=== PATIENT | male | born 1970 | race Caucasian/White ===

== ENCOUNTER 2019-07-24 20:54 | Inpatient (IN) ==
[2019-07-24] MEDS ORDERED: NS 1000 ML 1,000 ML IV ONE (21:26)
--- NOTE | 2019-07-24 21:34 | DR.GENAD ---
HPI - PCP Primary Care Physician: NFD - Complaint/Symptoms Chief Complaint Doctors Comments: EMS states they were called becausea patient took approximately 31 Adderall tablets over three day period will Lorcet. Patient states he took 18 pills today and 18 pills yesterday and states he was taking pills over three days trying to kill himself. states he is bipolar and has schizophrenia and is suppose to be on Zyprexa, Artane, Celexa, Xanax and has not had his zyprexa for three months. states he has tried to kill himself before with overdose. He denies chest pain, SOB, cold or cough or any recent trauma. EMS states he was setting in a chair rocking when they got to the h ouse and he becames uncontrollable and they gave him Haldol 5mg and Vistaril and had to restrain him all the way to the emergency room. Patient state he want to go home. States he smokes a lot and drinks a lot about 20 beers daily and smoke marijuania but denies cocaine use. He denies headache, dizziness or blurred vision. Chief Complaint:: PER EMS, PATIENT TOOK 31 ADDERALL AND UNKNOWN NUMBER OF LORCETS; PATIENT IS UNRESPONSIVE, UNABLE TO FOLLOW COMMANDS, AND COMBATIVE DURING TRIAGE; PATIENT IS DIAPHORETIC - Nurses notes reviewed Nurses Notes Review: Yes - Source History Provided: EMS - Mode of Arrival Mode of Arrival: EMS - Timing Onset of Chief Complaint: 07/24/19 Came on: Gradually - Duration Duration: Constant How lon Duration: Days - Severity Severity: Moderate - Modifying Factors Worsens:: nothing Improves:: nothing PMH - PMH Past Medical History: No Past Medical History Comment: UNKNOWN Past Surgical History: No Past Surgical History Comment: UNKNOWN - Family History History of Family Medical Conditions: No - infectious screening Have you traveled outside the country in the last 6 months?: No (UNKNOWN) ROS - Review of Systems Constitutional: No Symptoms Reported Eyes: No Symptoms Reported ENTM: No Symptoms Reported Respiratoy: No Symptoms Reported. negative: See HPI, Productive Cough, Non- Productive Cough, Moist Cough, Dry Cough, Hacking Cough, Barking Cough, Brassy Cough, Orthopnea, Short of Breath, Stridor, Wheezing, Hemoptysis, Other Cardiovascular: No Symptoms Reported Gastrointestinal/Abdominal: No Symptoms Reported Genitourinary: No Symptoms Reported Neurological: No Symptoms Reported, Depressed, Emotional Problems Musculoskeletal: No Symptoms Reported Integumentary: No Symptoms Reported Hematologic/Lymphatic: No Symptoms Reported Endocrine: No Symptoms Reported Psychiatric: No Symptoms Reported, Anxiety, Depression, Hallucinations, Suicidal PE - General Limitations: No Limitations General Appearance: Alert, In Distress (moderate) - Head Head Exam: Normal Inspection, Atraumatic, Normocephalic - Eyes Eye exam: Normal Appearance, PERRL, EOMI. negative: Scleral Icterus, Conjunctival Injection, Nystagmus, Miosis, Mydrasis, Periorbital Swelling, Periorbital Tenderness, Other - ENT ENT Exam: Normal Exam, Normal Oropharynx, Normal External Ear Exam, Mucous Membranes Moist, TM's Normal Bilaterally External Ear Exam: Normal External Inspection TM/Canal Exam: Bilateral Normal Nose Exam: Normal Nose Exam Mouth Exam: Normal Inspection Throat Exam: Normal Inspection. negative: Tonsillar Erythema, Tonsillomegaly, Tonsillar Exudate, R Peritonsillar Mass, L Peritonsillar Mass, Muffled Voice, Other - Neck Neck Exam: Normal Inspection, Full ROM, Trachea Midline - Chest Chest Inspection: Normal Inspection, Symmetric Chest Wall Rise. negative: Tenderness, Rash, Abscess, Other - Respiratory Respiratory Exam: Normal Lung Sounds Bilat Respiratory Exam: Bilateral Clear to Auscultation - Cardiovascular Cardiovascular Exam: Regular Rate, Normal Rhythm, Tachycardia, Normal Heart Sounds - Abdominal Exam Abdominal Exam: Normal Inspection, Normal Bowel Sounds, Soft. negative: Distention, Tenderness, Guarding, Rebound, Rigidity, Dimnished Bowel Sounds, Hyperactive Bowel Sounds, Hypoactive Bowel Sounds, Organomegaly, Trauma, Incision, Ascites, Mass, Bruit, Pulsatile Mass, Hernia, Other Abdominal Tenderness: negative: RUQ, RLQ, LUQ, LLQ, Epigastrium, Suprapubic, Diffuse, Mild, Moderate, Severe, Other - Extremities Extremities Exam: Normal Inspection, Full ROM, Normal Capillary Refill. negative: Tenderness, Edema, Joint Swelling, Calf Tenderness, Other - Back Back Exam: Normal Inspection, Full ROM. negative: Tenderness, (R) CVA Tenderness, (L) CVA Tenderness, Muscle Spasm, Paraspinal Tenderness, Vertebral Tenderness, Rashes, (R) Sciatic Notch Tenderness, (L) Sciatic Notch Tendern, (R) Straight Leg Raise, (L) Straight Leg Raise, Other - Neurologic Neurological Exam: Alert, Oriented X3, CN II-XII Intact, Reflexes Normal. negative: Normal Gait (gait not tested) - Psychiatric Psychiatric Exam: Normal Affect, Normal Mood, Agitated, Suicidal Ideation - Skin Skin Exam: Warm, Dry, Intact, Normal Color, Other (multiple tatooes) - Vital Signs Vitals: Pulse Rate 72 Respiratory Rate 17 Blood Pressure 140/82 O2 Sat by Pulse Oximetry 94 Course - Reevaluation 1st: Improved - Consultation Called: 01:46 Call Returned: 01:46 (Dr. Batista to admit) - Education/Counseling Education/Counseling: Patient, Family Educated On: Treatment, Diagnosis, Needs for Follow Up ROR - Labs Reviewed Laboratory Results Reviewed?: Yes (All labs and x-ray results reviewed and discussed with patenti) Result Diagrams: 07/24/19 21:40 07/25/19 00:34 - EKG Rate: 72 [place]: Normal Rhythm: NSR Block: None Hypertrophy: LVH ST: Nonsp - Labs Reviewed Laboratory: WBC 10.3 X10^3/uL (3.6-10.0) H 07/24/19 21:40 RBC 4.41 X10^6/uL (4.7-6.0) L 07/24/19 21:40 Hgb 13.8 g/dL (13.5-18.0) 07/24/19 21:40 Hct 40.5 % (42.0-54.0) L 07/24/19 21:40 MCV 91.8 fL (80.0-100.0) 07/24/19 21:40 MCH 31.4 pg (27.0-34.0) 07/24/19 21:40 MCHC 34.2 g/dL (33.0-35.0) 07/24/19 21:40 RDW 14.2 % (11.6-16.5) 07/24/19 21:40 Plt Count 206 X10^3/uL (150.0-450.0) 07/24/19 21:40 MPV 8.7 fL (7.4-11.0) 07/24/19 21:40 Neut % (Auto) 77.4 % (42.0-75.0) H 07/24/19 21:40 Lymph % (Auto) 12.1 % (21.0-51.0) L 07/24/19 21:40 [place] % (Auto) 8.2 % (0.0-13.0) 07/24/19 21:40 Eos % (Auto) 2.1 % (0.9-2.9) 07/24/19 21:40 Baso % (Auto) 0.2 % (0.2-1.0) 07/24/19 21:40 Neut # (Auto) 7.9 x10^3/uL (2.2-4.8) H 07/24/19 21:40 Lymph # (Auto) 1.2 X10^3/uL (1.3-2.9) L 07/24/19 21:40 [place] # (Auto) 0.8 x10^3/uL (0.3-0.8) 07/24/19 21:40 Eos # (Auto) 0.2 x10^3/uL (0.0-0.2) 07/24/19 21:40 Baso # (Auto) 0.0 X10^3/uL (0.0-0.1) 07/24/19 21:40 Absolute Nucleated RBC 0.0 /100WBC 07/24/19 21:40 Sodium 139 mmol/L (136-145) 07/25/19 00:34 Corrected Sodium 140 mmol/L (136-145) 07/25/19 00:34 Potassium 3.5 mmol/L (3.5-5.1) 07/25/19 00:34 Chloride 103 mmol/L (98-107) 07/25/19 00:34 Carbon Dioxide 30.2 mmol/L (21-32) 07/25/19 00:34 BUN 3 mg/dL (7-18) L 07/25/19 00:34 Creatinine 0.62 mg/dL (0.70-1.30) L 07/25/19 00:34 Est GFR (MDRD) Af Amer > 60 (>60) 07/25/19 00:34 Est GFR (MDRD) Non-Af > 60 (>60) 07/25/19 00:34 Glucose 155 mg/dL (65-99) H 07/25/19 00:34 Calcium 8.1 mg/dL (8.5-10.1) L 07/25/19 00:34 Corrected Calcium 9.1 mg/dL (8.5-10.1) 07/25/19 00:34 Magnesium 1.9 mg/dL (1.7-2.9) 07/24/19 21:40 Total Bilirubin 0.30 mg/dL (0.2-1.0) 07/25/19 00:34 AST 50 Units/L (15-37) H 07/25/19 00:34 ALT 49 Units/L (12-78) 07/25/19 00:34 Alkaline Phosphatase 63 Units/L (46-116) 07/25/19 00:34 Creatine Kinase 1060 Units/L (39-308) H 07/24/19 21:40 CK-MB (CK-2) 12.5 ng/mL (0-4.0) H* 07/24/19 21:40 CK/CKMB % Calc 1.2 % (<4) 07/24/19 21:40 Troponin I < 0.02 ng/mL (0-1.5) 07/24/19 21:40 Total Protein 6.0 g/dL (6.4-8.2) L 07/25/19 00:34 Albumin 2.8 g/dL (3.4-5.0) L 07/25/19 00:34 Globulin 3.2 g/dL (2.5-4.5) 07/25/19 00:34 Albumin/Globulin Ratio 0.9 Ratio (1.1-2.1) L 07/25/19 00:34 Specimen Type Catherized urine 07/24/19 21:38 Urine Color Yellow (YELLOW) 07/24/19 21:38 Urine Appearance Clear (CLEAR) 07/24/19 21:38 Urine pH 8.0 (5.0 - 8.0) 07/24/19 21:38 Ur Specific [place] 1.015 (1.000-1.030) 07/24/19 21:38 Urine Protein Negative (NEGATIVE) 07/24/19 21:38 Urine Glucose (UA) Negative (NEGATIVE) 07/24/19 21:38 Urine Ketones Negative (NEGATIVE) 07/24/19 21:38 Urine Occult Blood Negative (NEGATIVE) 07/24/19 21:38 Urine Nitrite Negative (NEGATIVE) 07/24/19 21:38 Urine Bilirubin Negative (NEGATIVE) 07/24/19 21:38 Urine Urobilinogen Normal (NORMAL) 07/24/19 21:38 Ur Leukocyte Esterase Negative (NEGATIVE) 07/24/19 21:38 Salicylates 6.4 mg/dL (2.8-20) 07/25/19 00:34 Urine Opiates Screen Negative (NEG=<300) 07/24/19 21:38 Urine Methadone Screen Negative (NEG=<300) 07/24/19 21:38 Acetaminophen 0.0 ug/mL (10-30) L 07/24/19 21:40 Ur Barbiturates Screen Negative (NEG=<200) 07/24/19 21:38 Ur Phencyclidine Scrn Negative (NEG=<25) 07/24/19 21:38 Ur Amphetamines Screen Positive (NEG=<1000) 07/24/19 21:38 U Benzodiazepines Scrn Negative (NEG=<200) 07/24/19 21:38 Urine Cocaine Screen Negative (NEG=<300) 07/24/19 21:38 U Marijuana (THC) Screen Positive (NEG=<50) A 07/24/19 21:38 Ethyl Alcohol mg/dL 114 mg/dL (0-19.9) H 07/24/19 21:40 Opioid - Opioid Risk Tool Total: 0 Total Score Risk Category: Low Risk - Diagnosis Discharge Problem: Adderall use disorder, severe, Hypokalemia Suicide attempt by drug ingestion Qualifiers: Encounter type: initial encounter Qualified Code(s): T50.902A - Poisoning by unspecified drugs, medicaments and biological substances, intentional self-harm, initial encounter Schizophrenia Qualifiers: Schizophrenia type: unspecified Qualified Code(s): F20.9 - Schizophrenia, unspecified Alcohol intoxication Qualifiers: Complication of substance-induced condition: uncomplicated Qualified Code(s): F10.920 - Alcohol use, unspecified with intoxication, uncomplicated Rhabdomyolysis Qualifiers: Encounter type: initial encounter - Discharge Plan Disposition: ADMITTED INPATIENT Condition: Stable - Follow ups/Referrals Follow ups/Referrals: NFD,None [Primary Care Provider] - 3 days - Instructions
[2019-07-24] MEDS ORDERED: NS 1000 ML 1,000 ML ONE (21:41)
[2019-07-24 21:44] LABS: BILIRUBIN,URINE NEGATIVE (NEGATIVE); BLOOD/HEMOGLOBIN,URINE NEGATIVE (NEGATIVE); GLUCOSE, URINE NEGATIVE (NEGATIVE); KETONES,URINE NEGATIVE (NEGATIVE); LEUKOCYTE ESTERASE ,URINE NEGATIVE (NEGATIVE); NITRITES,URINE NEGATIVE (NEGATIVE); PROTEIN,URINE NEGATIVE (NEGATIVE); UROBILINOGEN,URINE NORMAL (NORMAL)
[2019-07-24 21:51] LABS: BASOPHILS % (AUTO) 0.2 % (0.2-1.0); EOSINOPHILS # (AUTO) 0.2 x10^3/uL (0.0-0.2); EOSINOPHILS % (AUTO) 2.1 % (0.9-2.9); HEMATOCRIT 40.5 % (42.0-54.0); HEMOGLOBIN 13.8 g/dL (13.5-18.0); LYMPHOCYTES # (AUTO) 1.2 X10^3/uL (1.3-2.9); LYMPHOCYTES % (AUTO) 12.1 % (21.0-51.0); MEAN CORPUSCULAR HEMOGLOBIN 31.4 pg (27.0-34.0); MEAN CORPUSCULAR HGB CONC 34.2 g/dL (33.0-35.0); MEAN CORPUSCULAR VOLUME 91.8 fL (80.0-100.0); MEAN PLATELET VOLUME 8.7 fL (7.4-11.0); MONOCYTES # (AUTO) 0.8 x10^3/uL (0.3-0.8); MONOCYTES % (AUTO) 8.2 % (0.0-13.0); NEUTROPHILS # (AUTO) 7.9 x10^3/uL (2.2-4.8); NEUTROPHILS % (AUTO) 77.4 % (42.0-75.0); PLATELET COUNT 206 X10^3/uL (150.0-450.0); RED BLOOD COUNT 4.41 X10^6/uL (4.7-6.0); RED CELL DISTRIBUTION WIDTH 14.2 % (11.6-16.5); WHITE BLOOD COUNT 10.3 X10^3/uL (3.6-10.0)
[2019-07-24 21:53] LABS: BLOOD UREA NITROGEN 4 mg/dL (7-18); CALCIUM 8.5 mg/dL (8.5-10.1); CARBON DIOXIDE 27.3 mmol/L (21-32); CHLORIDE 99 mmol/L (98-107); CREATININE 0.71 mg/dL (0.70-1.30); SODIUM 138 mmol/L (136-145); eGFR NON BLACK RACES > 60 (>60)
[2019-07-24 21:55] LABS: APPEARANCE,URINE CLEAR (CLEAR); COLOR,URINE YELLOW (YELLOW)
[2019-07-24 21:57] LABS: ALANINE AMINOTRANSFERASE 54 Units/L (12-78); ALBUMIN 3.1 g/dL (3.4-5.0); ALKALINE PHOSPHATASE 69 Units/L (46-116); ASPARTATE AMINO TRANSFERASE 52 Units/L (15-37); BLOOD ALCOHOL 114 mg/dL (0-19.9); COR CA(FOR HYPOALB) 9.2 mg/dL (8.5-10.1); TOTAL PROTEIN 6.4 g/dL (6.4-8.2)
[2019-07-24 22:28] LABS: TROPONIN I < 0.02 ng/mL (0-1.5)
[2019-07-24 22:29] LABS: CKMB % 1.2 % (<4); CREATINE KINASE 1060 Units/L (39-308); CREATINE KINASE MB 12.5 ng/mL (0-4.0)
[2019-07-24 22:33] LABS: SALICYLATE 7.3 mg/dL (2.8-20)
[2019-07-24] MEDS ORDERED: K-LYTE EFFERVESCENT ONE (23:24)
[2019-07-24] MEDS ORDERED: D5 1/2 NS + KCL 20 MEQ/L 1,000 ML IV ONE (23:44)
[2019-07-24] MEDS ORDERED: MVI INJ (ADULT) IV ONE (23:45)
[2019-07-24] MEDS ORDERED: D5 1/2 NS + KCL 20 MEQ/L 1,000 ML IV SCH (23:45)
[2019-07-24] MEDS: K-LYTE EFFERVESCENT PO SCH (23:46)
[2019-07-25 00:57] LABS: ALANINE AMINOTRANSFERASE 49 Units/L (12-78); ALBUMIN 2.8 g/dL (3.4-5.0); ALKALINE PHOSPHATASE 63 Units/L (46-116); ASPARTATE AMINO TRANSFERASE 50 Units/L (15-37); BLOOD UREA NITROGEN 3 mg/dL (7-18); CALCIUM 8.1 mg/dL (8.5-10.1); CARBON DIOXIDE 30.2 mmol/L (21-32); CHLORIDE 103 mmol/L (98-107); COR CA(FOR HYPOALB) 9.1 mg/dL (8.5-10.1); COR NA(FOR HYPERGLY) 140 mmol/L (136-145); CREATININE 0.62 mg/dL (0.70-1.30); SODIUM 139 mmol/L (136-145); eGFR NON BLACK RACES > 60 (>60)
[2019-07-25 01:00] LABS: SALICYLATE 6.4 mg/dL (2.8-20)
[2019-07-25 03:25] LABS: BASOPHILS % (AUTO) 0.6 % (0.2-1.0); EOSINOPHILS # (AUTO) 0.3 x10^3/uL (0.0-0.2); EOSINOPHILS % (AUTO) 4.5 % (0.9-2.9); HEMATOCRIT 41.1 % (42.0-54.0); HEMOGLOBIN 14.1 g/dL (13.5-18.0); LYMPHOCYTES # (AUTO) 1.8 X10^3/uL (1.3-2.9); MEAN CORPUSCULAR HEMOGLOBIN 31.3 pg (27.0-34.0); MEAN CORPUSCULAR HGB CONC 34.3 g/dL (33.0-35.0); MEAN CORPUSCULAR VOLUME 91.3 fL (80.0-100.0); MEAN PLATELET VOLUME 8.6 fL (7.4-11.0); MONOCYTES # (AUTO) 0.6 x10^3/uL (0.3-0.8); NEUTROPHILS # (AUTO) 4.3 x10^3/uL (2.2-4.8); NEUTROPHILS % (AUTO) 60.9 % (42.0-75.0); PLATELET COUNT 196 X10^3/uL (150.0-450.0); RED CELL DISTRIBUTION WIDTH 14.5 % (11.6-16.5)
[2019-07-25 04:03] LABS: ALANINE AMINOTRANSFERASE 52 Units/L (12-78); ALBUMIN 2.8 g/dL (3.4-5.0); ALKALINE PHOSPHATASE 64 Units/L (46-116); ASPARTATE AMINO TRANSFERASE 49 Units/L (15-37); BLOOD UREA NITROGEN 3 mg/dL (7-18); CARBON DIOXIDE 28.3 mmol/L (21-32); CHLORIDE 104 mmol/L (98-107); COR NA(FOR HYPERGLY) 139 mmol/L (136-145); CREATININE 0.58 mg/dL (0.70-1.30); SODIUM 139 mmol/L (136-145); TROPONIN I < 0.02 ng/mL (0-1.5); eGFR NON BLACK RACES > 60 (>60)
[2019-07-25 04:06] LABS: CREATINE KINASE 1110 Units/L (39-308); CREATINE KINASE MB 11.2 ng/mL (0-4.0)
[2019-07-25 04:38] VITALS: BMI 21.6
[2019-07-25 10:21] LABS: CREATINE KINASE 837 Units/L (39-308); TROPONIN I < 0.02 ng/mL (0-1.5)
[2019-07-25 10:23] LABS: CREATINE KINASE MB 8.6 ng/mL (0-4.0)
--- NOTE | 2019-07-25 10:37 | DR.H&P ---
H&P History & Physical for Day of: H&P Date: 07/25/19 Chief Complaint Chief Complaint: Intentional overdose Allergies Allergies Allergy/AdvReac Type Severity Reaction Status Date / Time No Known Drug Allergies Allergy Verified 07/25/19 05:53 History of Present Illness History of Present Illness: Pt is a 49 yo m pmhx schizophrenia presenting with intentional overdose/suicide attempt. He was initially unresponsive and then became combative. He did require Haldol and vistaril. Per review of ED record, pt took 31 Adderall tablets over three day period with Loricet, in an attempt to kill himself. He does admit this to me and that he has been hearing voices in h is head that told him to do this. He appears to be having auditory hallucinations during exam along with withdrawal symptoms. He reports being on zyprexa in the past but has not taken for the past three months. Initial labs:Wbc 10.3, Ekg NSR, UDS +EtOH, +THC, +Amphetamines; K:2.7, Mag 1.9, CK 1060, Cr:0.62, Acetaminophen negative, Salicylates 7.3 wnl. Will continue to monitor and follow up labs in the morning. Past Medical History Past Medical History: Schizophrenia Past Surgical History Surgical History: Unknown Social History Does patient currently use any type of tobacco product: Yes Have you used tobacco products in the last 12 months: Yes Type of Tobacco Use: Cigarettes Does any household member use tobacco: Yes Alcohol Use: Heavy Drug Use: Prescription Drugs and Marijuana Medications Home Medications: No Known Drug Allergies Allergy (Verified 07/25/19 05:53) Labs Result Diagrams: 07/25/19 03:09 07/25/19 03:09 Labs: Laboratory WBC 7.0 X10^3/uL (3.6-10.0) 07/25/19 03:09 RBC 4.50 X10^6/uL (4.7-6.0) L 07/25/19 03:09 Hgb 14.1 g/dL (13.5-18.0) 07/25/19 03:09 Hct 41.1 % (42.0-54.0) L 07/25/19 03:09 MCV 91.3 fL (80.0-100.0) 07/25/19 03:09 MCH 31.3 pg (27.0-34.0) 07/25/19 03:09 MCHC 34.3 g/dL (33.0-35.0) 07/25/19 03:09 RDW 14.5 % (11.6-16.5) 07/25/19 03:09 Plt Count 196 X10^3/uL (150.0-450.0) 07/25/19 03:09 MPV 8.6 fL (7.4-11.0) 07/25/19 03:09 Neut % (Auto) 60.9 % (42.0-75.0) 07/25/19 03:09 Lymph % (Auto) 26.0 % (21.0-51.0) 07/25/19 03:09 [place] % (Auto) 8.0 % (0.0-13.0) 07/25/19 03:09 Eos % (Auto) 4.5 % (0.9-2.9) H 07/25/19 03:09 Baso % (Auto) 0.6 % (0.2-1.0) 07/25/19 03:09 Neut # (Auto) 4.3 x10^3/uL (2.2-4.8) 07/25/19 03:09 Lymph # (Auto) 1.8 X10^3/uL (1.3-2.9) 07/25/19 03:09 [place] # (Auto) 0.6 x10^3/uL (0.3-0.8) 07/25/19 03:09 Eos # (Auto) 0.3 x10^3/uL (0.0-0.2) H 07/25/19 03:09 Baso # (Auto) 0.0 X10^3/uL (0.0-0.1) 07/25/19 03:09 Absolute Nucleated RBC 0.0 /100WBC 07/25/19 03:09 Sodium 139 mmol/L (136-145) 07/25/19 03:09 Corrected Sodium 139 mmol/L (136-145) 07/25/19 03:09 Potassium 3.2 mmol/L (3.5-5.1) L 07/25/19 03:09 Chloride 104 mmol/L (98-107) 07/25/19 03:09 Carbon Dioxide 28.3 mmol/L (21-32) 07/25/19 03:09 BUN 3 mg/dL (7-18) L 07/25/19 03:09 Creatinine 0.58 mg/dL (0.70-1.30) L 07/25/19 03:09 Est GFR (MDRD) Af Amer > 60 (>60) 07/25/19 03:09 Est GFR (MDRD) Non-Af > 60 (>60) 07/25/19 03:09 Glucose 114 mg/dL (65-99) H 07/25/19 03:09 POC Glucose (mg/dL) 116 mg/dL (65-99) H 07/25/19 05:32 Calcium 8.0 mg/dL (8.5-10.1) L 07/25/19 03:09 Corrected Calcium 9.0 mg/dL (8.5-10.1) 07/25/19 03:09 Magnesium 1.9 mg/dL (1.7-2.9) 07/24/19 21:40 Total Bilirubin 0.30 mg/dL (0.2-1.0) 07/25/19 03:09 AST 49 Units/L (15-37) H 07/25/19 03:09 ALT 52 Units/L (12-78) 07/25/19 03:09 Alkaline Phosphatase 64 Units/L (46-116) 07/25/19 03:09 Creatine Kinase 837 Units/L (39-308) H 07/25/19 09:23 CK-MB (CK-2) 8.6 ng/mL (0-4.0) H* 07/25/19 09:23 CK/CKMB % Calc 1.0 % (<4) 07/25/19 09:23 Troponin I < 0.02 ng/mL (0-1.5) 07/25/19 09:23 Total Protein 6.0 g/dL (6.4-8.2) L 07/25/19 03:09 Albumin 2.8 g/dL (3.4-5.0) L 07/25/19 03:09 Globulin 3.2 g/dL (2.5-4.5) 07/25/19 03:09 Albumin/Globulin Ratio 0.9 Ratio (1.1-2.1) L 07/25/19 03:09 Specimen Type Catherized urine 07/24/19 21:38 Urine Color Yellow (YELLOW) 07/24/19 21:38 Urine Appearance Clear (CLEAR) 07/24/19 21:38 Urine pH 8.0 (5.0 - 8.0) 07/24/19 21:38 Ur Specific [place] 1.015 (1.000-1.030) 07/24/19 21:38 Urine Protein Negative (NEGATIVE) 07/24/19 21:38 Urine Glucose (UA) Negative (NEGATIVE) 07/24/19 21:38 Urine Ketones Negative (NEGATIVE) 07/24/19 21:38 Urine Occult Blood Negative (NEGATIVE) 07/24/19 21:38 Urine Nitrite Negative (NEGATIVE) 07/24/19 21:38 Urine Bilirubin Negative (NEGATIVE) 07/24/19 21:38 Urine Urobilinogen Normal (NORMAL) 07/24/19 21:38 Ur Leukocyte Esterase Negative (NEGATIVE) 07/24/19 21:38 Salicylates 6.4 mg/dL (2.8-20) 07/25/19 00:34 Urine Opiates Screen Negative (NEG=<300) 07/24/19 21:38 Urine Methadone Screen Negative (NEG=<300) 07/24/19 21:38 Acetaminophen 0.0 ug/mL (10-30) L 07/24/19 21:40 Ur Barbiturates Screen Negative (NEG=<200) 07/24/19 21:38 Ur Phencyclidine Scrn Negative (NEG=<25) 07/24/19 21:38 Ur Amphetamines Screen Positive (NEG=<1000) 07/24/19 21:38 U Benzodiazepines Scrn Negative (NEG=<200) 07/24/19 21:38 Urine Cocaine Screen Negative (NEG=<300) 07/24/19 21:38 U Marijuana (THC) Screen Positive (NEG=<50) A 07/24/19 21:38 Ethyl Alcohol mg/dL 114 mg/dL (0-19.9) H 07/24/19 21:40 Review of Systems Constitutional: Chills and Sweats; denies Fever Eyes: No Symptoms Reported ENT: No Symptoms Reported Respiratory: No Symptoms Reported Cardiovascular: No Symptoms Reported Gastrointestinal: No Symptoms Reported Genitourinary: No Symptoms Reported Musculoskeletal: Back Pain Skin: No Symptoms Reported Neurological: No Symptoms Reported Physical Exam Vital Signs: Temperature 97.7 F Pulse Rate [Left Brachial] 85 Pulse Rate 79 Respiratory Rate 18 Blood Pressure [Left Arm] 136/75 Blood Pressure 135/75 O2 Sat by Pulse Oximetry 94 Oriented: Person and Place Eyes: Other (Left pupil mydriasis ) Ear: Normal Nose: Normal Throat: Normal Respiratory: Clear Throughout Cardiovascular: Normal : Normal Auscultation: Bowel Sounds: Normal Palpation: Normal Tenderness: Normal Skin: Diaphoresis Musculoskeletal: Normal Psychiatric: Anxiety, Agitation and Other (auditory hallucinations) Mood Description: Suspicious and Anxious Affect: Anxious and Depressed Speech Pattern: Clear Assessment/Plan (1) Suicide attempt by drug ingestion: Qualifiers: Encounter type: initial encounter Qualified Code(s): T50.902A - Poisoning by unspecified drugs, medicaments and biological substances, intentional self-harm, initial encounter Status: Acute Plan: Suicide precautions Will contact psychiatric facility when patient is medically stable (2) Hypokalemia: Status: Acute Plan: Replete per protocol (3) Schizophrenia: Qualifiers: Schizophrenia type: unspecified Qualified Code(s): F20.9 - Schizophrenia, unspecified Status: Acute Plan: Will start Zyprexa. (4) Alcohol intoxication: Qualifiers: Complication of substance-induced condition: uncomplicated Qualified Code(s): F10.920 - Alcohol use, unspecified with intoxication, uncomplicated Status: Acute Plan: Start Thiamine, Ativan scheduled. (5) Rhabdomyolysis: Qualifiers: Encounter type: initial encounter Status: Acute Plan: Increase IVF NS@150ml/h CK:1060>1110 (6) Adderall use disorder, severe: Status: Acute (7) Fixed dilated pupil of left eye: Status: Acute Plan: Will get CT head to evaluate. Review H&P Reviewed: Yes Patient was examined?: Yes
[2019-07-25] MEDS ORDERED: ATIVAN TAB 1 MG PO ONE (10:41)
[2019-07-25] MEDS: NS 1000 ML 1,000 ML IV SCH ×2 (10:46→20:04)
[2019-07-25] MEDS: K-LYTE EFFERVESCENT PO SCH (10:47)
[2019-07-25] MEDS ORDERED: VITAMIN B-1 PO SCH (11:00)
[2019-07-25] MEDS ORDERED: ZyPREXA TAB 5 MG PO SCH (11:00)
--- NOTE | 2019-07-25 13:40 | CT ---
HISTORYDILATED PUPIL, DRUG INGESTIONSTUDYBRAIN W/O CONCOMPARISONNoneTECHNIQUESerial axial images were obtained from the skull base to the vertex without infusion of IV contrast. Coronal and sagittal images were also submitted. Dose reduction techniques including Automated Exposure Control (AEC) and adjustment of mA and kV were utilized.FINDINGSNo definite evidence of acute intracranial hemorrhage or mass is identified. The ventricles, sulci, and cisterns are grossly unremarkable in appearance. Patchy areas of decreased attenuation within the periventricular, subcortical, and subinsular white matter suggest changes of chronic small vessel ischemic disease. No evidence of significant midline shift is identified. No definite abnormal extra axial fluid collections are appreciated. The visualized paranasal sinuses are grossly unremarkable. If symptoms or clinical concerns persist recommend continued follow up for further evaluation.IMPRESSIONNo CT evidence of acute intracranial abnormality is appreciated.Findings suggesting changes of chronic small vessel ischemic disease.Electronically signed by: WILLIAM MUIR (Jul 25, 2019 13:39:46)
[2019-07-25] MEDS ORDERED: ZOFRAN INJ 4 MG VIAL ONE (15:31)
[2019-07-25] MEDS: ZOFRAN INJ 4 MG VIAL IVP PRN (15:35)
[2019-07-25 16:10] LABS: CREATINE KINASE 507 Units/L (39-308); TROPONIN I < 0.02 ng/mL (0-1.5)
[2019-07-25 16:12] LABS: CREATINE KINASE MB 5.1 ng/mL (0-4.0)
[2019-07-25] MEDS ORDERED: MAALOX or MYLANTA ONE (20:23)
[2019-07-25] MEDS ORDERED: K-DUR TAB 20 MEQ PO ONE (20:33)
[2019-07-25] MEDS: K-DUR TAB 20 MEQ PO PRN ×2 (20:36→20:37)
[2019-07-25] MEDS: ATIVAN TAB 1 MG PO PRN (20:51)
[2019-07-25] MEDS ORDERED: ATIVAN TAB 0.5 MG PO SCH (21:00)
[2019-07-26] MEDS ORDERED: TYLENOL 325 MG TAB PO PRN (02:20)
[2019-07-26] MEDS ORDERED: TYLENOL 325 MG TAB PO ONE (02:22)
[2019-07-26] MEDS: ATIVAN TAB 1 MG PO PRN ×4 (02:34→19:02)
[2019-07-26] MEDS: NS 1000 ML 1,000 ML IV SCH ×3 (02:43→19:03)
[2019-07-26 05:52] LABS: ALANINE AMINOTRANSFERASE 45 Units/L (12-78); ALBUMIN 2.6 g/dL (3.4-5.0); ALKALINE PHOSPHATASE 67 Units/L (46-116); ASPARTATE AMINO TRANSFERASE 34 Units/L (15-37); BLOOD UREA NITROGEN 5 mg/dL (7-18); CALCIUM 8.3 mg/dL (8.5-10.1); CARBON DIOXIDE 25.9 mmol/L (21-32); CHLORIDE 106 mmol/L (98-107); COR CA(FOR HYPOALB) 9.4 mg/dL (8.5-10.1); CREATINE KINASE 383 Units/L (39-308); CREATININE 0.63 mg/dL (0.70-1.30); MAGNESIUM 2.1 mg/dL (1.7-2.9); PHOSPHORUS 2.1 mg/dL (2.6-4.7); SODIUM 140 mmol/L (136-145); TOTAL PROTEIN 5.8 g/dL (6.4-8.2); eGFR NON BLACK RACES > 60 (>60)
[2019-07-26 05:53] LABS: BASOPHILS # (AUTO) 0.1 X10^3/uL (0.0-0.1); BASOPHILS % (AUTO) 0.9 % (0.2-1.0); EOSINOPHILS # (AUTO) 0.3 x10^3/uL (0.0-0.2); EOSINOPHILS % (AUTO) 4.6 % (0.9-2.9); HEMATOCRIT 40.8 % (42.0-54.0); HEMOGLOBIN 13.9 g/dL (13.5-18.0); LYMPHOCYTES # (AUTO) 1.6 X10^3/uL (1.3-2.9); LYMPHOCYTES % (AUTO) 21.6 % (21.0-51.0); MEAN CORPUSCULAR HEMOGLOBIN 31.5 pg (27.0-34.0); MEAN CORPUSCULAR HGB CONC 33.9 g/dL (33.0-35.0); MEAN CORPUSCULAR VOLUME 92.8 fL (80.0-100.0); MEAN PLATELET VOLUME 9.1 fL (7.4-11.0); MONOCYTES # (AUTO) 0.5 x10^3/uL (0.3-0.8); MONOCYTES % (AUTO) 7.1 % (0.0-13.0); NEUTROPHILS # (AUTO) 4.8 x10^3/uL (2.2-4.8); NEUTROPHILS % (AUTO) 65.8 % (42.0-75.0); PLATELET COUNT 204 X10^3/uL (150.0-450.0); RED CELL DISTRIBUTION WIDTH 14.6 % (11.6-16.5); WHITE BLOOD COUNT 7.3 X10^3/uL (3.6-10.0)
[2019-07-26] MEDS: ZOFRAN INJ 4 MG VIAL IVP PRN (07:46)
[2019-07-26] MEDS ORDERED: PHENOBARBITAL SODIUM INJ 65 MG VIAL IM PRN (08:26)
[2019-07-26] MEDS ORDERED: LIBRIUM PO PRN (08:26)
[2019-07-26] MEDS ORDERED: KAOPECTATE (NEW FORMULA) PO PRN (08:26)
[2019-07-26] MEDS ORDERED: MAALOX or MYLANTA PO PRN (08:26)
[2019-07-26] MEDS ORDERED: MILK OF MAGNESIA PO PRN (08:26)
[2019-07-26] MEDS ORDERED: MOTRIN TAB 800 MG PO PRN (08:26)
[2019-07-26] MEDS ORDERED: THIAMINE HCL INJ IM SCH (09:00)
[2019-07-26] MEDS ORDERED: ZyPREXA TAB 5 MG PO SCH (09:00)
--- NOTE | 2019-07-26 10:11 | PCM.PROG ---
Progress Note Progress Note for Day of Date of Exam: 07/26/19 Subjective Subjective: Pt is a 49 yo m pmhx schizophrenia admitted for intentional overdose/suicide attempt after taking over 30 pills of Adderall. He does also have acute psychosis, auditory hallucinations, alcohol withdrawal, and now almost resolved rhabdomyolysis. His CK has trended down from 1110>383. This mor alesia he is having some withdrawal symptoms of tremor. Detox protocol ordered. Still having auditory hallucination, will increase zyprexa to 10mg. He appeared to have a dilated pupil yesterday, CT head negative for acute findings. He will need to be evaluated at a psychiatric facility due to suicide attempt. Will continue to monitor and follow up labs in the morning. Past Medical Family Social History Past Med/Fam/Surg Hx: No changes since H&P Allergies: Allergies No Known Drug Allergies Allergy (Verified 07/25/19 05:53) Review of Systems ROS: No change since H&P Vital Signs and I&O's Vital Signs: Temperature 98.3 F Pulse Rate [Left Brachial] 85 Pulse Rate 93 Respiratory Rate 23 Blood Pressure [Left Arm] 136/75 Blood Pressure 145/99 O2 Sat by Pulse Oximetry 95 Intake and Output: Intake & Output 07/23/19 07/24/19 07/25/19 07/26/19 22:59 22:59 23:59 23:59 Intake Total 1620 / 1620 Output Total 1100 / 1100 Balance 520 / 520 Physical Exam Oriented: Person and Place Eyes: Other (Left pupil mydriasis ) Ear: Normal Nose: Normal Throat: Normal Respiratory: Normal Cardiovascular: Normal : Normal Auscultation: Bowel Sounds: Normal Tenderness: Normal Skin: Diaphoresis Musculoskeletal: Normal Psychiatric: Anxiety, Agitation and Other (auditory hallucinations) Mood Description: Suspicious and Anxious Affect: Anxious and Depressed Speech Pattern: Clear Laboratory and Diagnostics Result Diagrams: 07/26/19 04:31 07/26/19 04:31 Labs: Laboratory WBC 7.3 X10^3/uL (3.6-10.0) 07/26/19 04:31 RBC 4.40 X10^6/uL (4.7-6.0) L 07/26/19 04:31 Hgb 13.9 g/dL (13.5-18.0) 07/26/19 04:31 Hct 40.8 % (42.0-54.0) L 07/26/19 04:31 MCV 92.8 fL (80.0-100.0) 07/26/19 04:31 MCH 31.5 pg (27.0-34.0) 07/26/19 04:31 MCHC 33.9 g/dL (33.0-35.0) 07/26/19 04:31 RDW 14.6 % (11.6-16.5) 07/26/19 04:31 Plt Count 204 X10^3/uL (150.0-450.0) 07/26/19 04:31 MPV 9.1 fL (7.4-11.0) 07/26/19 04:31 Neut % (Auto) 65.8 % (42.0-75.0) 07/26/19 04:31 Lymph % (Auto) 21.6 % (21.0-51.0) 07/26/19 04:31 [place] % (Auto) 7.1 % (0.0-13.0) 07/26/19 04:31 Eos % (Auto) 4.6 % (0.9-2.9) H 07/26/19 04:31 Baso % (Auto) 0.9 % (0.2-1.0) 07/26/19 04:31 Neut # (Auto) 4.8 x10^3/uL (2.2-4.8) 07/26/19 04:31 Lymph # (Auto) 1.6 X10^3/uL (1.3-2.9) 07/26/19 04:31 [place] # (Auto) 0.5 x10^3/uL (0.3-0.8) 07/26/19 04:31 Eos # (Auto) 0.3 x10^3/uL (0.0-0.2) H 07/26/19 04:31 Baso # (Auto) 0.1 X10^3/uL (0.0-0.1) 07/26/19 04:31 Absolute Nucleated RBC 0.1 /100WBC 07/26/19 04:31 Sodium 140 mmol/L (136-145) 07/26/19 04:31 Corrected Sodium TNP 07/26/19 04:31 Potassium 4.1 mmol/L (3.5-5.1) 07/26/19 04:31 Chloride 106 mmol/L (98-107) 07/26/19 04:31 Carbon Dioxide 25.9 mmol/L (21-32) 07/26/19 04:31 BUN 5 mg/dL (7-18) L 07/26/19 04:31 Creatinine 0.63 mg/dL (0.70-1.30) L 07/26/19 04:31 Est GFR (MDRD) Af Amer > 60 (>60) 07/26/19 04:31 Est GFR (MDRD) Non-Af > 60 (>60) 07/26/19 04:31 Glucose 87 mg/dL (65-99) 07/26/19 04:31 POC Glucose (mg/dL) 93 mg/dL (65-99) 07/26/19 05:43 Calcium 8.3 mg/dL (8.5-10.1) L 07/26/19 04:31 Corrected Calcium 9.4 mg/dL (8.5-10.1) 07/26/19 04:31 Phosphorus 2.1 mg/dL (2.6-4.7) L 07/26/19 04:31 Magnesium 2.1 mg/dL (1.7-2.9) 07/26/19 04:31 Total Bilirubin 0.40 mg/dL (0.2-1.0) 07/26/19 04:31 AST 34 Units/L (15-37) 07/26/19 04:31 ALT 45 Units/L (12-78) 07/26/19 04:31 Alkaline Phosphatase 67 Units/L (46-116) 07/26/19 04:31 Creatine Kinase 383 Units/L (39-308) H 07/26/19 04:31 CK-MB (CK-2) 5.1 ng/mL (0-4.0) H* 07/25/19 15:09 CK/CKMB % Calc 1.0 % (<4) 07/25/19 15:09 Troponin I < 0.02 ng/mL (0-1.5) 07/25/19 15:09 Total Protein 5.8 g/dL (6.4-8.2) L 07/26/19 04:31 Albumin 2.6 g/dL (3.4-5.0) L 07/26/19 04:31 Globulin 3.2 g/dL (2.5-4.5) 07/26/19 04:31 Albumin/Globulin Ratio 0.8 Ratio (1.1-2.1) L 07/26/19 04:31 Specimen Type Catherized urine 07/24/19 21:38 Urine Color Yellow (YELLOW) 07/24/19 21:38 Urine Appearance Clear (CLEAR) 07/24/19 21:38 Urine pH 8.0 (5.0 - 8.0) 07/24/19 21:38 Ur Specific [place] 1.015 (1.000-1.030) 07/24/19 21:38 Urine Protein Negative (NEGATIVE) 07/24/19 21:38 Urine Glucose (UA) Negative (NEGATIVE) 07/24/19 21:38 Urine Ketones Negative (NEGATIVE) 07/24/19 21:38 Urine Occult Blood Negative (NEGATIVE) 07/24/19 21:38 Urine Nitrite Negative (NEGATIVE) 07/24/19 21:38 Urine Bilirubin Negative (NEGATIVE) 07/24/19 21:38 Urine Urobilinogen Normal (NORMAL) 07/24/19 21:38 Ur Leukocyte Esterase Negative (NEGATIVE) 07/24/19 21:38 Salicylates 6.4 mg/dL (2.8-20) 07/25/19 00:34 Urine Opiates Screen Negative (NEG=<300) 07/24/19 21:38 Urine Methadone Screen Negative (NEG=<300) 07/24/19 21:38 Acetaminophen 0.0 ug/mL (10-30) L 07/24/19 21:40 Ur Barbiturates Screen Negative (NEG=<200) 07/24/19 21:38 Ur Phencyclidine Scrn Negative (NEG=<25) 07/24/19 21:38 Ur Amphetamines Screen Positive (NEG=<1000) 07/24/19 21:38 U Benzodiazepines Scrn Negative (NEG=<200) 07/24/19 21:38 Urine Cocaine Screen Negative (NEG=<300) 07/24/19 21:38 U Marijuana (THC) Screen Positive (NEG=<50) A 07/24/19 21:38 Ethyl Alcohol mg/dL 114 mg/dL (0-19.9) H 07/24/19 21:40 Plan (1) Suicide attempt by drug ingestion: Status: Acute Qualifiers: Encounter type: initial encounter Qualified Code(s): T50.902A - Poisoning by unspecified drugs, medicaments and biological substances, intentional self-harm, initial encounter Plan: Suicide precautions Contact psychiatric facility for patient eval (2) Hypokalemia: Status: Acute Plan: Replete per protocol (3) Schizophrenia: Status: Acute Qualifiers: Schizophrenia type: unspecified Qualified Code(s): F20.9 - Schizophrenia, unspecified Plan: Increase Zyprexa dose to 10mg. (4) Alcohol intoxication: Status: Acute Qualifiers: Complication of substance-induced condition: uncomplicated Qualified Code(s): F10.920 - Alcohol use, unspecified with intoxication, uncomplicated Plan: Detox protocol (5) Rhabdomyolysis: Status: Acute Qualifiers: Encounter type: initial encounter Plan: Increase IVF NS@150ml/h CK:1060>1110>837>507>383 (6) Adderall use disorder, severe: Status: Acute (7) Fixed dilated pupil of left eye: Status: Acute Plan: CT head negative
[2019-07-26] MEDS: K-LYTE EFFERVESCENT PO SCH (10:31)
[2019-07-26] MEDS: PHENOBARBITAL TAB 30 MG (32.4MG) PO SCH ×3 (10:33→16:57)
[2019-07-26] MEDS: MAGNESIUM SULFATE 1 GRAM/100 mL PREMIX 1 G/100 ML BAG IV SCH ×2 (12:19→13:03)
[2019-07-26] MEDS ORDERED: NICOTINE PATCH TD ONE (15:28)
[2019-07-26] MEDS ORDERED: NICOTINE PATCH TD SCH (16:00)
[2019-07-26 19:26] VITALS: BP 126/71
--- NOTE | 2019-07-26 20:46 | W.DIS.FURT ---
Summary of Discharge Discharge Summary of Date Date of Exam: 07/26/19 Admission Date Date of Admission: 07/24/19 Admission Diagnosis Hospital Course: Pt is a 49 yo m pmhx schizophrenia admitted for intentional overdose/suicide attempt and acute psychosis after taking over 30 pills of Adderall. Pt reported having auditory hallucinations that were telling him to "kill himself". Pt also had moderate rhabdomyolysis that resolved with IVF and also had to be placed on detox protocol for alcohol withdrawal. He was also started on zyprexa. On day of discharge pt was medically stable for transfer to [facility] for further evaluation. Vital Signs: Vital Signs (72 hours) 07/24/19 20:57 07/24/19 21:30 07/24/19 22:00 Temperature Pulse Rate 79 99 H 71 Pulse Rate [Left Brachial] Respiratory Rate 22 20 16 Blood Pressure 117/61 105/52 128/65 Blood Pressure [Left Arm] O2 Sat by Pulse Oximetry 98 93 L 93 L 07/24/19 23:00 07/25/19 00:00 07/25/19 03:32 Temperature Pulse Rate 14 L 72 Pulse Rate [Left Brachial] 85 Respiratory Rate 14 17 20 Blood Pressure 122/68 140/82 Blood Pressure [Left Arm] 136/75 O2 Sat by Pulse Oximetry 93 L 94 L 98 07/25/19 03:45 07/25/19 04:00 07/25/19 04:05 Temperature 97.8 F Pulse Rate 74 78 79 Pulse Rate [Left Brachial] Respiratory Rate 21 24 29 H Blood Pressure 133/93 135/82 Blood Pressure [Left Arm] O2 Sat by Pulse Oximetry 98 99 99 07/25/19 05:00 07/25/19 06:00 07/25/19 07:00 Temperature Pulse Rate 75 78 82 Pulse Rate [Left Brachial] Respiratory Rate 16 22 22 Blood Pressure 132/79 135/77 133/74 Blood Pressure [Left Arm] O2 Sat by Pulse Oximetry 93 L 94 L 94 L 07/25/19 08:00 07/25/19 08:01 07/25/19 09:00 Temperature 97.7 F Pulse Rate 92 H 83 85 Pulse Rate [Left Brachial] Respiratory Rate 41 H 20 21 Blood Pressure 142/80 138/71 Blood Pressure [Left Arm] O2 Sat by Pulse Oximetry 96 97 95 07/25/19 10:00 07/25/19 11:00 07/25/19 12:00 Temperature 98.0 F Pulse Rate 79 86 76 Pulse Rate [Left Brachial] Respiratory Rate 18 23 17 Blood Pressure 135/75 135/65 136/80 Blood Pressure [Left Arm] O2 Sat by Pulse Oximetry 94 L 97 96 07/25/19 13:00 07/25/19 14:00 07/25/19 15:00 Temperature Pulse Rate 77 70 Pulse Rate [Left Brachial] Respiratory Rate 13 15 Blood Pressure 132/75 122/76 125/77 Blood Pressure [Left Arm] O2 Sat by Pulse Oximetry 96 97 07/25/19 16:00 07/25/19 17:00 07/25/19 17:01 Temperature 98.1 F Pulse Rate 70 87 67 Pulse Rate [Left Brachial] Respiratory Rate 16 62 H 21 Blood Pressure 126/79 137/93 Blood Pressure [Left Arm] O2 Sat by Pulse Oximetry 94 L 97 97 07/25/19 18:00 07/25/19 18:26 07/25/19 19:00 Temperature 98.8 F Pulse Rate 76 96 H 80 Pulse Rate [Left Brachial] Respiratory Rate 41 H 21 19 Blood Pressure 128/71 116/67 Blood Pressure [Left Arm] O2 Sat by Pulse Oximetry 95 98 96 07/25/19 20:00 07/25/19 21:00 07/25/19 22:00 Temperature Pulse Rate 78 86 81 Pulse Rate [Left Brachial] Respiratory Rate 26 H 30 H 17 Blood Pressure 120/72 153/84 143/81 Blood Pressure [Left Arm] O2 Sat by Pulse Oximetry 95 95 95 07/25/19 23:00 07/26/19 00:00 07/26/19 01:00 Temperature 98.8 F Pulse Rate 80 78 72 Pulse Rate [Left Brachial] Respiratory Rate 16 21 22 Blood Pressure 137/83 128/80 134/87 Blood Pressure [Left Arm] O2 Sat by Pulse Oximetry 95 95 97 07/26/19 02:00 07/26/19 02:24 07/26/19 03:00 Temperature Pulse Rate 71 75 Pulse Rate [Left Brachial] Respiratory Rate 25 H 15 21 Blood Pressure 135/76 146/91 Blood Pressure [Left Arm] O2 Sat by Pulse Oximetry 96 95 07/26/19 03:24 07/26/19 04:00 07/26/19 05:00 Temperature 98.8 F Pulse Rate 78 82 Pulse Rate [Left Brachial] Respiratory Rate 19 22 25 H Blood Pressure 143/98 156/91 Blood Pressure [Left Arm] O2 Sat by Pulse Oximetry 95 97 07/26/19 06:00 07/26/19 07:00 07/26/19 08:00 Temperature 98.3 F Pulse Rate 73 92 H 93 H Pulse Rate [Left Brachial] Respiratory Rate 23 32 H 23 Blood Pressure 144/89 138/95 145/99 Blood Pressure [Left Arm] O2 Sat by Pulse Oximetry 95 94 L 95 07/26/19 09:00 07/26/19 10:00 07/26/19 11:00 Temperature Pulse Rate 86 94 H 95 H Pulse Rate [Left Brachial] Respiratory Rate 26 H 28 H 25 H Blood Pressure 128/95 122/88 139/71 Blood Pressure [Left Arm] O2 Sat by Pulse Oximetry 97 97 97 07/26/19 12:00 07/26/19 13:00 07/26/19 14:00 Temperature 98.5 F Pulse Rate 98 H 89 88 Pulse Rate [Left Brachial] Respiratory Rate 28 H 24 18 Blood Pressure 137/80 125/70 118/56 Blood Pressure [Left Arm] O2 Sat by Pulse Oximetry 99 98 97 07/26/19 15:00 07/26/19 16:00 07/26/19 17:00 Temperature 98.9 F Pulse Rate 87 83 93 H Pulse Rate [Left Brachial] Respiratory Rate 19 21 18 Blood Pressure 117/76 117/73 137/83 Blood Pressure [Left Arm] O2 Sat by Pulse Oximetry 99 98 100 07/26/19 18:00 Temperature Pulse Rate 89 Pulse Rate [Left Brachial] Respiratory Rate 28 H Blood Pressure 126/71 Blood Pressure [Left Arm] O2 Sat by Pulse Oximetry 100 Labs: Laboratory Last Values WBC 7.3 X10^3/uL (3.6-10.0) 07/26/19 04:31 RBC 4.40 X10^6/uL (4.7-6.0) L 07/26/19 04:31 Hgb 13.9 g/dL (13.5-18.0) 07/26/19 04:31 Hct 40.8 % (42.0-54.0) L 07/26/19 04:31 MCV 92.8 fL (80.0-100.0) 07/26/19 04:31 MCH 31.5 pg (27.0-34.0) 07/26/19 04:31 MCHC 33.9 g/dL (33.0-35.0) 07/26/19 04:31 RDW 14.6 % (11.6-16.5) 07/26/19 04:31 Plt Count 204 X10^3/uL (150.0-450.0) 07/26/19 04:31 MPV 9.1 fL (7.4-11.0) 07/26/19 04:31 Neut % (Auto) 65.8 % (42.0-75.0) 07/26/19 04:31 Lymph % (Auto) 21.6 % (21.0-51.0) 07/26/19 04:31 [place] % (Auto) 7.1 % (0.0-13.0) 07/26/19 04:31 Eos % (Auto) 4.6 % (0.9-2.9) H 07/26/19 04:31 Baso % (Auto) 0.9 % (0.2-1.0) 07/26/19 04:31 Neut # (Auto) 4.8 x10^3/uL (2.2-4.8) 07/26/19 04:31 Lymph # (Auto) 1.6 X10^3/uL (1.3-2.9) 07/26/19 04:31 [place] # (Auto) 0.5 x10^3/uL (0.3-0.8) 07/26/19 04:31 Eos # (Auto) 0.3 x10^3/uL (0.0-0.2) H 07/26/19 04:31 Baso # (Auto) 0.1 X10^3/uL (0.0-0.1) 07/26/19 04:31 Absolute Nucleated RBC 0.1 /100WBC 07/26/19 04:31 Sodium 140 mmol/L (136-145) 07/26/19 04:31 Corrected Sodium TNP 07/26/19 04:31 Potassium 4.1 mmol/L (3.5-5.1) 07/26/19 04:31 Chloride 106 mmol/L (98-107) 07/26/19 04:31 Carbon Dioxide 25.9 mmol/L (21-32) 07/26/19 04:31 BUN 5 mg/dL (7-18) L 07/26/19 04:31 Creatinine 0.63 mg/dL (0.70-1.30) L 07/26/19 04:31 Est GFR (MDRD) Af Amer > 60 (>60) 07/26/19 04:31 Est GFR (MDRD) Non-Af > 60 (>60) 07/26/19 04:31 Glucose 87 mg/dL (65-99) 07/26/19 04:31 POC Glucose (mg/dL) 87 mg/dL (65-99) 07/26/19 16:52 Calcium 8.3 mg/dL (8.5-10.1) L 07/26/19 04:31 Corrected Calcium 9.4 mg/dL (8.5-10.1) 07/26/19 04:31 Phosphorus 2.1 mg/dL (2.6-4.7) L 07/26/19 04:31 Magnesium 2.1 mg/dL (1.7-2.9) 07/26/19 04:31 Total Bilirubin 0.40 mg/dL (0.2-1.0) 07/26/19 04:31 AST 34 Units/L (15-37) 07/26/19 04:31 ALT 45 Units/L (12-78) 07/26/19 04:31 Alkaline Phosphatase 67 Units/L (46-116) 07/26/19 04:31 Creatine Kinase 383 Units/L (39-308) H 07/26/19 04:31 CK-MB (CK-2) 5.1 ng/mL (0-4.0) H* 07/25/19 15:09 CK/CKMB % Calc 1.0 % (<4) 07/25/19 15:09 Troponin I < 0.02 ng/mL (0-1.5) 07/25/19 15:09 Total Protein 5.8 g/dL (6.4-8.2) L 07/26/19 04:31 Albumin 2.6 g/dL (3.4-5.0) L 07/26/19 04:31 Globulin 3.2 g/dL (2.5-4.5) 07/26/19 04:31 Albumin/Globulin Ratio 0.8 Ratio (1.1-2.1) L 07/26/19 04:31 Specimen Type Catherized urine 07/24/19 21:38 Urine Color Yellow (YELLOW) 07/24/19 21:38 Urine Appearance Clear (CLEAR) 07/24/19 21:38 Urine pH 8.0 (5.0 - 8.0) 07/24/19 21:38 Ur Specific [place] 1.015 (1.000-1.030) 07/24/19 21:38 Urine Protein Negative (NEGATIVE) 07/24/19 21:38 Urine Glucose (UA) Negative (NEGATIVE) 07/24/19 21:38 Urine Ketones Negative (NEGATIVE) 07/24/19 21:38 Urine Occult Blood Negative (NEGATIVE) 07/24/19 21:38 Urine Nitrite Negative (NEGATIVE) 07/24/19 21:38 Urine Bilirubin Negative (NEGATIVE) 07/24/19 21:38 Urine Urobilinogen Normal (NORMAL) 07/24/19 21:38 Ur Leukocyte Esterase Negative (NEGATIVE) 07/24/19 21:38 Salicylates 6.4 mg/dL (2.8-20) 07/25/19 00:34 Urine Opiates Screen Negative (NEG=<300) 07/24/19 21:38 Urine Methadone Screen Negative (NEG=<300) 07/24/19 21:38 Acetaminophen 0.0 ug/mL (10-30) L 07/24/19 21:40 Ur Barbiturates Screen Negative (NEG=<200) 07/24/19 21:38 Ur Phencyclidine Scrn Negative (NEG=<25) 07/24/19 21:38 Ur Amphetamines Screen Positive (NEG=<1000) 07/24/19 21:38 U Benzodiazepines Scrn Negative (NEG=<200) 07/24/19 21:38 Urine Cocaine Screen Negative (NEG=<300) 07/24/19 21:38 U Marijuana (THC) Screen Positive (NEG=<50) A 07/24/19 21:38 Ethyl Alcohol mg/dL < 3 mg/dL (0-19.9) 07/26/19 16:08 Reason For Visit: DRUG INGESTION-ADDERALL; SUICIDAL IDEATION; Discharge Date Discharge Date: 07/26/19 Discharge Diagnosis All Active Problems (Updated 07/25/19 @ 11:41 by Alan Batista) Fixed dilated pupil of left eye (Acute) Suicide attempt by drug ingestion (Acute) Adderall use disorder, severe (Acute) Hypokalemia (Acute) Schizophrenia (Acute) Alcohol intoxication (Acute) Rhabdomyolysis (Acute) Plan of Treatment: Continue with present treatment and follow up plan. Pt is to keep follow up appointment as instructed and take medications as ordered. Discharge Medications Discharge Medications: No Known Drug Allergies Allergy (Verified 07/25/19 05:53) Discharge Disposition Discharge Disposition: [facility] Unit Discharge Condition: Stable
[2019-07-26] MEDS ORDERED: AMBIEN PO SCH (21:00)
[2019-07-29] MEDS ORDERED: PHENOBARBITAL TAB 15 MG (16.2MG) PO SCH (09:00)
== END 2019-07-26 20:30 | DRG 918 ==
LOC: ER 20:54 → ICU 07-25 01:51
PROVIDERS: ADMIT Family Medicine; ATTEND Family Medicine
DX: F12.90 Cannabis use, unspecified, uncomplicated; E87.6 Hypokalemia; F10.929 Alcohol use, unspecified with intoxication, unspecified; F20.9 Schizophrenia, unspecified; M62.82 Rhabdomyolysis; Y90.5 Blood alcohol level of 100-119 mg/100 ml; F15.10 Other stimulant abuse, uncomplicated; T43.622A Poisoning by amphetamines, intentional self-harm, initial encounter; H57.04 Mydriasis
CPT/HCPCS: 36415; 51702; 70450; 80053; 80307; 80320; 81003; 82550; 82553; 83735; 84100; 84132; 84484; 85025; 93005; 96365; 96367; 99285; A4216; A4222; J2405; J3411; J3475; J3490; J7030; J8499

== ENCOUNTER 2022-12-24 06:12 | Inpatient (IN) ==
[2022-12-24] MEDS ORDERED: ADACEL or BOOSTRIX TDaP VACCINE IM ONE ×2 (06:17→06:18)
[2022-12-24] MEDS ORDERED: NS 1,000 ML IV 1,000 ML ONE ×2 (06:23→06:31)
--- NOTE | 2022-12-24 06:23 | DR.LACERAT ---
HPI Time Seen Time Seen by Provider: 12/24/22 06:21 HPI Comment HPI Comment: Patient is 52yr old male in er with multiple dog bites and lacerations and abrasions sustained prior to arrival to er. patient said the dog belong to a friend. Td not UTD. Laceration contaminated with dirt. NO active bleeding. Patient is weak. Blood pressure is low. GCS 15. Low grade temp noted in er. Complaints Chief Complaint Doctors Comments: Multiple dog bites, lacerations and abrasions sustaines prior to arrival at er. COVID-19 Coronavirus risk:travel/contact w/high risk person: No Has patient experienced Coronavirus symptoms: No Reviewed Nurses Notes Reviewed: Yes PMH PMH Past Medical History: Anxiety, Arthritis and Hypertension Past Surgical History: Yes Surgical History: No History Family History Family Medical History: Hypertension Social History Do you use any recreational Drugs:: No ROS Review of Systems Constitutional: Fever, Weakness and Fatigue Eyes: No Symptoms Reported; negative Blurred Vision ENTM: No Symptoms Reported; negative Epistaxis Respiratoy: Short of Breath; negative Moist Cough or Wheezing Cardiovascular: Palpitations and Other (Low blood pressure.); negative Chest Pain Gastrointestinal/Abdominal: No Symptoms Reported; negative Abdominal Pain, Nausea or Vomiting Genitourinary: No Symptoms Reported; negative Dysuria Neurological: Weakness; negative Headache or Dizziness Musculoskeletal: Back Pain (lacerations.) and Other (Multiple lacerations and skin abrasions extremities, back and buttock. lacerations have dirt embedded in them.) Integumentary: Other (multiple dirt containing lacerations extremities and back.) Hematologic/Lymphatic: No Symptoms Reported Endocrine: Increased Thirst; negative Increased Urine Psychiatric: No Symptoms Reported All Other Systems: Reviewed and Negative PE Vital Signs Vitals: Vital Signs Temperature 99.2 F Pulse Rate 88 Pulse Rate 85 Pulse Rate 86 Pulse Rate 86 Pulse Rate 86 Pulse Rate 84 Pulse Rate 86 Pulse Rate 94 Pulse Rate 94 Pulse Rate 96 Pulse Rate 112 Respiratory Rate 24 Blood Pressure 115/59 Blood Pressure 107/59 Blood Pressure 101/55 Blood Pressure 84/52 Blood Pressure 88/52 Blood Pressure 88/52 Blood Pressure 52/24 Blood Pressure 68/34 Blood Pressure 68/34 O2 Sat by Pulse Oximetry 98 O2 Sat by Pulse Oximetry 93 O2 Sat by Pulse Oximetry 93 O2 Sat by Pulse Oximetry 97 O2 Sat by Pulse Oximetry 96 O2 Sat by Pulse Oximetry 89 O2 Sat by Pulse Oximetry 93 O2 Sat by Pulse Oximetry 90 O2 Sat by Pulse Oximetry 90 O2 Sat by Pulse Oximetry 89 O2 Sat by Pulse Oximetry 89 General Limitations: No Limitations General Appearance: Alert and In No Apparent Distress Head Head Exam: Normal Inspection Eyes Eye exam: Normal Appearance, PERRL and EOMI; negative Scleral Icterus or Conjunctival Injection ENT ENT Exam: Normal Exam, Normal Oropharynx, Normal External Ear Exam and TM's Normal Bilaterally Neck Neck Exam: Normal Inspection and Trachea Midline; negative Tenderness Chest Chest Inspection: Normal Inspection and Symmetric Chest Wall Rise; negative Tenderness Respiratory Respiratory Exam: Respiratory Distress; negative Accessory Muscle Use or Chest Wall Tenderness Respiratory Exam: Bilateral: Rhonchi Cardiovascular Cardiovascular Exam: Tachycardia; negative Systolic Murmur or Diastolic Murmur Abdominal Exam Abdominal Exam: Normal Inspection, Normal Bowel Sounds and Soft; negative Tenderness Extremities Extremities Exam: Normal Capillary Refill and Other (multiple contaminated lacerations and abrasions.) Back Back Exam: Other (multiple lacerations and abrasions ) Neurologic Neurological Exam: Alert and Oriented X3; negative Motor Sensory Deficit Psychiatric Psychiatric Exam: Normal Affect Skin Skin Exam: Other (multiple lacerations.) Type of Lesion: Laceration (multiples) and Abrasion (multiple.) Distribution: Back, LUE, LLE, RUE and RLE Front/Back of Body, Lg ([place]): 1. 2. 3. 4. 5. 6. 7. 8. MDM Differential Diagnosis Differential Diagnosis: Abrasion, Contusion (hypotension, tachycardia, tachypnea.), Laceration and Fracture COURSE Treatment Treatment: See orders done while patient was in er. He was given NS 1L IV bolus times 2 and td 0.5mg IM, Ancef 2gm ivpb, ND LEVAQUIN 250MG ivpb while patient was in er. blood pressure improved with fluid resuscitation. Patient admitted to hospital for further management. Consultation Consultation Comments: Discussed patient with dr. POST, Will take to surgery, clean wounds and lacerations and repair. Discussed patient with dr. Batista., patients PCP. He will admit patient. Education/Counseling Education/Counseling: Patient Educated On: Treatment Critical Care Notes Total Time (mins): 60 Critical Diagnosis: Hypotension. Critical Interventions: Was on patient bedside monitoring his conditions and given fluids and medications as indicated in orders. Explained to patient plan of management. ROR Labs Reviewed Laboratory Results Reviewed?: Yes 12/25/22 04:15 12/25/22 04:15 Laboratory: 12/24/22 08:02 Blood Blood Culture - Final 12/24/22 07:54 Blood Blood Culture - Final WBC 13.4 X10^3/uL (3.6-10.0) H 12/24/22 06:31 RBC 3.67 X10^6/uL (4.7-6.0) L 12/24/22 06:31 Hgb 11.0 g/dL (13.5-18.0) L 12/24/22 06:31 Hct 32.1 % (42.0-54.0) L 12/24/22 06:31 MCV 87.3 fL (80.0-100.0) 12/24/22 06:31 MCH 30.0 pg (27.0-34.0) 12/24/22 06:31 MCHC 34.3 g/dL (33.0-35.0) 12/24/22 06:31 RDW 13.8 % (11.6-16.5) 12/24/22 06:31 Plt Count 156 X10^3/uL (150.0-450.0) 12/24/22 06:31 MPV 9.5 fL (7.4-11.0) 12/24/22 06:31 Neut % (Auto) 84.9 % (42.0-75.0) H 12/24/22 06:31 Lymph % (Auto) 6.1 % (21.0-51.0) L 12/24/22 06:31 [place] % (Auto) 8.8 % (0.0-13.0) 12/24/22 06:31 Eos % (Auto) 0.0 % (0.9-2.9) L 12/24/22 06:31 Baso % (Auto) 0.2 % (0.2-1.0) 12/24/22 06:31 Neut # (Auto) 11.4 x10^3/uL (2.2-4.8) H 12/24/22 06:31 Lymph # (Auto) 0.8 X10^3/uL (1.3-2.9) L 12/24/22 06:31 [place] # (Auto) 1.2 x10^3/uL (0.3-0.8) H 12/24/22 06:31 Eos # (Auto) 0.0 x10^3/uL (0.0-0.2) 12/24/22 06:31 Baso # (Auto) 0.0 X10^3/uL (0.0-0.1) 12/24/22 06:31 Absolute Nucleated RBC 0.0 /100WBC 12/24/22 06:31 PT 15.6 SECONDS (11.8-14.3) 12/24/22 06:31 INR Target Range - 12/24/22 06:31 INR 1.26 (0.8-1.3) 12/24/22 06:31 APTT 31.1 SECONDS (22.9-36.5) 12/24/22 06:31 PTT Comment - 12/24/22 06:31 Fibrinogen 519 mg/dL (239-489) H 12/24/22 06:31 Sodium 136 mmol/L (136-145) 12/24/22 06:31 Corrected Sodium TNP 12/24/22 06:31 Potassium 4.2 mmol/L (3.5-5.1) 12/24/22 06:31 Chloride 98 mmol/L (98-107) 12/24/22 06:31 Carbon Dioxide 20.9 mmol/L (21-32) L 12/24/22 06:31 BUN 45 mg/dL (7-18) H 12/24/22 06:31 Creatinine 4.05 mg/dL (0.70-1.30) H 12/24/22 06:31 Est GFR (MDRD) Af Amer 20 (>60) L 12/24/22 06:31 Est GFR (MDRD) Non-Af 17 (>60) L 12/24/22 06:31 Glucose 105 mg/dL (65-99) H 12/24/22 06:31 Lactic Acid 3.4 mmol/L (0.4-2.0) H 12/24/22 07:54 Calcium 8.4 mg/dL (8.5-10.1) L 12/24/22 06:31 Corrected Calcium 9.2 mg/dL (8.5-10.1) 12/24/22 06:31 Phosphorus 7.2 mg/dL (2.6-4.7) H 12/24/22 06:31 Magnesium 2.8 mg/dL (2.0-2.9) 12/24/22 06:31 Total Bilirubin 1.00 mg/dL (0.2-1.0) 12/24/22 06:31 AST 193 Units/L (15-37) H 12/24/22 06:31 ALT 47 Units/L (12-78) 12/24/22 06:31 Alkaline Phosphatase 69 Units/L (46-116) 12/24/22 06:31 Total Protein 5.8 g/dL (6.4-8.2) L 12/24/22 06:31 Albumin 3.0 g/dL (3.4-5.0) L 12/24/22 06:31 Globulin 2.8 g/dL (2.5-4.5) 12/24/22 06:31 Albumin/Globulin Ratio 1.1 Ratio (1.1-2.1) 12/24/22 06:31 Salicylates 4.4 mg/dL (2.8-20) 12/24/22 06:31 Acetaminophen 0.4 ug/mL (10-30) L 12/24/22 06:31 Ethyl Alcohol mg/dL < 3 mg/dL (0-19.9) 12/24/22 06:31 Blood Type B POSITIVE 12/24/22 07:54 Antibody Screen Negative 12/24/22 07:54 XRAY XRAY Interpreted by: Radiologist (Report noted.) and Self EKG Rate: 85 [place]: Normal Rhythm: NSR Block: None Hypertrophy: None ST: Nonsp (Prolong QT.) Opioid Opioid Risk Tool Age (Fernando box if 16-45): No History of Preadolescent Sexual Abuse: No Total: 0 Total Score Risk Category: Low Risk Copyright: Yadiel QUEEN predicting aberrant behaviors Discharge Plan Diagnosis Discharge Problem: Acute hypotension, Multiple lacerations, Dog bite of multiple sites, Abrasion, multiple sites, Acute renal failure Pneumonia Qualifiers: Pneumonia type: due to unspecified organism Discharge Plan Patient Disposition: ADMITTED INPATIENT Condition: Stable
[2022-12-24] MEDS ORDERED: ANCEF VIAL 1 GRAM ONE ×2 (06:26→17:57)
[2022-12-24] MEDS ORDERED: NS 1,000 ML IV 1,000 ML IV ONE ×4 (06:26→07:25)
[2022-12-24] MEDS ORDERED: NS 100 ML IV 100 ML ONE ×2 (06:26→17:57)
[2022-12-24] MEDS ORDERED: ANCEF VIAL 1 GRAM IVP ONE (06:26)
[2022-12-24 06:32] VITALS: BMI 22.0
[2022-12-24 06:46] LABS: BASOPHILS % (AUTO) 0.2 % (0.2-1.0); HEMATOCRIT 32.1 % (42.0-54.0); LYMPHOCYTES # (AUTO) 0.8 X10^3/uL (1.3-2.9); LYMPHOCYTES % (AUTO) 6.1 % (21.0-51.0); MEAN CORPUSCULAR HGB CONC 34.3 g/dL (33.0-35.0); MEAN CORPUSCULAR VOLUME 87.3 fL (80.0-100.0); MEAN PLATELET VOLUME 9.5 fL (7.4-11.0); MONOCYTES # (AUTO) 1.2 x10^3/uL (0.3-0.8); MONOCYTES % (AUTO) 8.8 % (0.0-13.0); NEUTROPHILS # (AUTO) 11.4 x10^3/uL (2.2-4.8); NEUTROPHILS % (AUTO) 84.9 % (42.0-75.0); PLATELET COUNT 156 X10^3/uL (150.0-450.0); RED BLOOD COUNT 3.67 X10^6/uL (4.7-6.0); RED CELL DISTRIBUTION WIDTH 13.8 % (11.6-16.5); WHITE BLOOD COUNT 13.4 X10^3/uL (3.6-10.0)
[2022-12-24 07:03] LABS: ACETAMINOPHEN 0.4 ug/mL (10-30); SALICYLATE 4.4 mg/dL (2.8-20)
[2022-12-24 07:04] LABS: ALANINE AMINOTRANSFERASE 47 Units/L (12-78); ALKALINE PHOSPHATASE 69 Units/L (46-116); ASPARTATE AMINO TRANSFERASE 193 Units/L (15-37); BLOOD UREA NITROGEN 45 mg/dL (7-18); CALCIUM 8.4 mg/dL (8.5-10.1); CARBON DIOXIDE 20.9 mmol/L (21-32); CHLORIDE 98 mmol/L (98-107); COR CA(FOR HYPOALB) 9.2 mg/dL (8.5-10.1); CREATININE 4.05 mg/dL (0.70-1.30); GLUCOSE 105 mg/dL (65-99); POTASSIUM 4.2 mmol/L (3.5-5.1); SODIUM 136 mmol/L (136-145); TOTAL PROTEIN 5.8 g/dL (6.4-8.2); eGFR NON BLACK RACES 17 (>60)
[2022-12-24 07:06] LABS: BLOOD ALCOHOL < 3 mg/dL (0-19.9)
--- NOTE | 2022-12-24 07:11 | RAD ---
HISTORYDOGBITE/LACERATIONSSTUDYCHEST, 1 [id number] cardiomediastinal silhouette is stable. Patchy bilateral airspace opacities. No pneumothorax or effusion. The bony thorax appears intact.IMPRESSIONBilateral opacities concerning for pneumonia. Continued follow-up recommended.Electronically signed by: MARIA INES CLEMENT (Dec 24, 2022 07:09:29)
[2022-12-24] MEDS ORDERED: NS 1,000 ML IV 2,000 ML ONE (07:21)
--- NOTE | 2022-12-24 07:22 | EKG ---
Test Reason : ENCOUNTER WITH DOG Blood Pressure : */* mmHG Vent. Rate : 86 BPM Atrial Rate : 86 BPM P-R Int : 126 ms QRS Dur : 86 ms QT Int : 406 ms P-R-T Axes : 68 79 61 degrees QTc Int : 485 ms Normal sinus rhythm Prolonged QT Abnormal ECG No previous ECGs available Confirmed by Otoniel Ryan ([id number]) on 12/24/2022 8:03:20 AM Referred By: Confirmed By: Otoniel Ryan
[2022-12-24] MEDS ORDERED: LEVAQUIN PREMIX IV 250 MG 250 MG/50 ML BAG IV ONE (07:49)
--- NOTE | 2022-12-24 07:55 | RAD ---
HISTORYDog bite right thighSTUDYRight femur two viewsCOMPARISONNoneFINDINGSThere is no evidence for fracture, lytic, or blastic lesion. No abnormal periosteal reaction is identified. There is a soft tissue defect in the dorsal aspect of the distal left thigh likely related to the dog bite described in the history. No radiopaque foreign bodies identified in the soft tissues.IMPRESSIONNo bony abnormalitySoft tissue defect likely related to the dog bite described in the history.Electronically signed by: MARIA INES CLEMENT (Dec 24, 2022 07:54:24)
--- NOTE | 2022-12-24 07:56 | RAD ---
HISTORYDOG BITE, LACERATION TO LEFT THIGH, TRAUMASTUDYFEMUR, LEFTCOMPARISONNoneTECHNIQUEFour view left femur.FINDINGSNo left femoral shaft fracture. Knee and hip joints appear anatomic. There is soft tissue gas in the medial left thigh. No aggressive osseous lesion.IMPRESSIONNo left femoral shaft fracture. Soft tissue gas in the medial mid left thigh likely secondary to laceration. Necrotizing infection is not excluded.Electronically signed by: Dieter Vieira (Dec 24, 2022 07:55:34)
[2022-12-24 09:00] LABS: INR 1.26 (0.8-1.3)
[2022-12-24] MEDS ORDERED: LEVAQUIN PREMIX IV 250 MG 250 MG/50 ML BAG IV SCH ×3 (09:00)
[2022-12-24 09:26] LABS: MAGNESIUM 2.8 mg/dL (2.0-2.9); PHOSPHORUS 7.2 mg/dL (2.6-4.7)
[2022-12-24] MEDS: NICOTINE PATCH TD SCH (10:32)
[2022-12-24] MEDS: ANCEF VIAL 1 GRAM 1 G in NS 100 ML IV 100 ML IV SCH ×2 (11:14→21:18)
[2022-12-24] MEDS: MORPHINE SULFATE INJ 4 MG IVP PRN ×3 (11:42→23:42)
[2022-12-24] MEDS ORDERED: DUONEB 0.5 MG/3 MG (3 mL) NEB ONE (12:34)
[2022-12-24] MEDS: DUONEB 0.5 MG/3 MG (3 mL) NEB SCH ×2 (12:48→16:51)
[2022-12-24] MEDS ORDERED: ANCEF VIAL 1 GRAM IVP SCH (14:00)
[2022-12-24] MEDS ORDERED: XANAX PO PRN (14:01)
[2022-12-24] MEDS ORDERED: LYRICA CAP 50 mg PO PRN (14:01)
[2022-12-24] MEDS: NS 1,000 ML IV 1,000 ML IV SCH ×2 (14:49→21:43)
[2022-12-24] MEDS: BUSPAR PO SCH ×2 (14:50→21:19)
[2022-12-24] MEDS: FOLIC ACID TAB 1 MG PO SCH (14:50)
[2022-12-24] MEDS ORDERED: HALDOL INJ IM PRN (15:26)
[2022-12-24] MEDS ORDERED: STERILE WATER IRRIGATION IR ONE (16:42)
[2022-12-24] MEDS ORDERED: DIPRIVAN VIAL 20 ML ONE (17:42)
[2022-12-24] MEDS ORDERED: FENTANYL VIAL INJ 100 mcg ONE (17:42)
[2022-12-24] MEDS ORDERED: VERSED ONE (17:42)
[2022-12-24] MEDS: STERILE WATER IRRIGATION IR ONE ×2 (17:45→17:50)
[2022-12-24] MEDS ORDERED: LR 1,000 ML IV 1,000 ML IV ONE (17:57)
[2022-12-24] MEDS ORDERED: BETADINE SOLN ONE ×2 (17:57→18:13)
[2022-12-24] MEDS ORDERED: BACTROBAN TOPICAL OINT ONE (18:37)
--- NOTE | 2022-12-24 19:10 | OR.IMMED ---
IMMEDIATE POST-OP NOTE Immediate Post-Op Note Pre-Op Diagnosis: Dog bites. Multiple lacerations to left forearm ,right medial thigh, left medial thigh, left lateral calf, right popliteal area ,right medial calf. Multiple smaller abrasions throughout both upper and lower extremities and back Procedure: cleansing of all wounds and loose approximation of all wounds Description of Procedure: see operative summary Surgeon/Pants Closer: David Findings: as above Estimated Blood Loss: minimal Complications: none Progress Notes: return to the ICU. Continue IV antibiotics . Dress wounds every 6 hours with Neosporin. Monitor creatinine. Check urine and serum myglobin. Check creatinine kinase .
--- NOTE | 2022-12-24 19:21 | DR.CONSULT ---
CONSULT Consultation for Day of: Date: 12/24/22 Chief Complaint Chief Complaint: multiple dog bite wounds to both arms, both legs and back Allergies Allergies Allergy/AdvReac Type Severity Reaction Status Date / Time No Known Drug Allergies Allergy Verified 09/20/22 09:19 History of Present Illness History of Present Illness: This 51 year old male with self-described "mental Problems " attacked by a dog earlier and today in evaluated in the emergency room. Surgeon oxidation engineer could not see the patient this morning due to that surgeon becoming ill with Covid-19. I was called to see the patient. The wounds occurred approximately 9 hours prior. Given a tetanus shot in the emergency room. Creatinine noted to be greater than 4 where prior laboratory values show it to be less than one. Past Medical History Past Medical History: Anxiety, Arthritis and Hypertension Past Surgical History Surgical History: No History Family History Family Medical History: Cancer and Hypertension Social History Does patient currently use any type of tobacco product: Yes Have you used tobacco products in the last 12 months: Yes Type of Tobacco Use: Cigarettes How many years tobacco product used: 40 Does any household member use tobacco: Yes Alcohol Use: None Drug Use: Prescription Drugs Medications Home Medications: No Known Drug Allergies Allergy (Verified 09/20/22 09:19) CONTINUE taking the following medications alprazolam 0.5 mg tablet 0.5 mg PO QPM PRN insomnia 12/24/22 [History] buspirone 15 mg tablet 15 mg PO TID 12/24/22 [History] cyclobenzaprine 10 mg tablet 10 mg PO BID 12/24/22 [History] desvenlafaxine 50 mg tablet,extended release 24 hr 50 mg PO QDAY 12/24/22 [History] folic acid 1 mg tablet 1 mg PO QDAY 12/24/22 [History] methylprednisolone 4 mg tablets in a dose pack 4 mg PO PER PKG DIR 12/24/22 [History] mirtazapine 30 mg tablet 30 mg PO QHS 12/24/22 [History] naproxen 500 mg tablet 500 mg PO BID 12/24/22 [History] olanzapine 5 mg tablet 5 mg PO BID 12/24/22 [History] pregabalin 150 mg capsule 150 mg PO TID PRN pain 12/24/22 [History] quetiapine 100 mg tablet 100 mg PO QHS 12/24/22 [History] Review of Systems Constitutional: See HPI Eyes: No Symptoms Reported ENT: No Symptoms Reported Respiratory: No Symptoms Reported Cardiovascular: No Symptoms Reported Gastrointestinal: No Symptoms Reported Genitourinary: No Symptoms Reported Musculoskeletal: No Symptoms Reported Skin: See HPI Neurological: No Symptoms Reported Physical Exam Vital Signs: Vital Signs Temperature 99.1 F Temperature 98.1 F Temperature 98.1 F Pulse Rate 101 Pulse Rate 99 Pulse Rate 103 Pulse Rate 105 Pulse Rate 99 Pulse Rate 106 Pulse Rate 99 Respiratory Rate 23 Respiratory Rate 20 Respiratory Rate 28 Respiratory Rate 20 Respiratory Rate 18 Respiratory Rate 30 Respiratory Rate 20 Respiratory Rate 34 Respiratory Rate 26 Respiratory Rate 26 Respiratory Rate 25 Blood Pressure 105/57 Blood Pressure 107/59 Blood Pressure 105/59 Blood Pressure 104/58 Blood Pressure 119/63 Blood Pressure 109/55 Blood Pressure 119/63 O2 Sat by Pulse Oximetry 95 O2 Sat by Pulse Oximetry 96 O2 Sat by Pulse Oximetry 94 O2 Sat by Pulse Oximetry 94 O2 Sat by Pulse Oximetry 95 O2 Sat by Pulse Oximetry 92 O2 Sat by Pulse Oximetry 95 hemoglobin equals 11 grams, b u n equals 45, creatinine equals 4.05 Oriented: Normal, Time, Person and Place Eyes: Normal Ear: Normal Nose: Normal Throat: Normal Respiratory: Clear Throughout Cardiovascular: Normal : Normal Auscultation: Bowel Sounds: Normal Palpation: Normal Tenderness: Normal Skin: Other (Multiple lacerations to both upper and lower extremities. See operative note for the size of these wounds wounds. Also with abrasions and scratches to legs and arms and back ) Musculoskeletal: Normal Psychiatric: Normal Mood Description: Calm Affect: Normal Speech Pattern: Clear Plan (1) Dog bite of multiple sites: Status: Acute Plan: Wounds will be cleansed and closed as appropriate in the operating room. Patient has already received IV antibiotics and tetanus prophylaxis. Will continue IV antibiotics for now. (2) Acute renal failure: Status: Acute Plan: Hydrate patient. Monitor BUN and creatinine
[2022-12-24] MEDS ORDERED: PULMICORT NEB TX 0.5 MG NEB ONE (19:31)
[2022-12-24] MEDS: PULMICORT NEB TX 0.5 MG NEB SCH (20:10)
[2022-12-24] MEDS ORDERED: REMERON PO SCH (21:00)
[2022-12-24] MEDS: ZyPREXA TAB 5 MG PO SCH (21:19)
[2022-12-24] MEDS: FLEXERIL TAB 10 MG PO SCH (21:19)
[2022-12-24] MEDS: NEOSPORIN OINT TOP SCH (21:20)
[2022-12-25] MEDS: DUONEB 0.5 MG/3 MG (3 mL) NEB SCH ×3 (00:25→09:26)
[2022-12-25] MEDS ORDERED: HALDOL INJ ONE (02:06)
[2022-12-25] MEDS ORDERED: HALDOL INJ IM ONE (02:07)
[2022-12-25 05:06] LABS: BASOPHILS % (AUTO) 0.3 % (0.2-1.0); HEMATOCRIT 28.2 % (42.0-54.0); HEMOGLOBIN 9.9 g/dL (13.5-18.0); LYMPHOCYTES % (AUTO) 10.8 % (21.0-51.0); MEAN CORPUSCULAR HEMOGLOBIN 30.4 pg (27.0-34.0); MEAN CORPUSCULAR VOLUME 86.8 fL (80.0-100.0); MEAN PLATELET VOLUME 10.1 fL (7.4-11.0); MONOCYTES # (AUTO) 0.7 x10^3/uL (0.3-0.8); NEUTROPHILS # (AUTO) 7.5 x10^3/uL (2.2-4.8); NEUTROPHILS % (AUTO) 80.9 % (42.0-75.0); PLATELET COUNT 117 X10^3/uL (150.0-450.0); RED BLOOD COUNT 3.25 X10^6/uL (4.7-6.0); RED CELL DISTRIBUTION WIDTH 13.6 % (11.6-16.5); WHITE BLOOD COUNT 9.3 X10^3/uL (3.6-10.0)
[2022-12-25 05:18] LABS: ALANINE AMINOTRANSFERASE 66 Units/L (12-78); ALBUMIN 2.4 g/dL (3.4-5.0); ALKALINE PHOSPHATASE 55 Units/L (46-116); ASPARTATE AMINO TRANSFERASE 215 Units/L (15-37); BLOOD UREA NITROGEN 15 mg/dL (7-18); CALCIUM 7.9 mg/dL (8.5-10.1); CARBON DIOXIDE 28.3 mmol/L (21-32); CHLORIDE 104 mmol/L (98-107); COR CA(FOR HYPOALB) 9.2 mg/dL (8.5-10.1); COR NA(FOR HYPERGLY) 137 mmol/L (136-145); CREATININE 0.93 mg/dL (0.70-1.30); GLUCOSE 113 mg/dL (65-99); SODIUM 137 mmol/L (136-145); TOTAL PROTEIN 5.4 g/dL (6.4-8.2); eGFR NON BLACK RACES > 60 (>60)
[2022-12-25] MEDS: BUSPAR PO SCH (05:29)
[2022-12-25] MEDS: NEOSPORIN OINT TOP SCH (05:29)
[2022-12-25] MEDS: NS 1,000 ML IV 1,000 ML IV SCH (05:29)
[2022-12-25] MEDS: MORPHINE SULFATE INJ 4 MG IVP PRN (07:40)
--- NOTE | 2022-12-25 07:48 | DR.H&P ---
H&P History & Physical for Day of: H&P Date: 12/24/22 Chief Complaint Chief Complaint: Dog bite Allergies Allergies Allergy/AdvReac Type Severity Reaction Status Date / Time No Known Drug Allergies Allergy Verified 09/20/22 09:19 History of Present Illness History of Present Illness: Pt is a 52 year old male past medical history of Schizophrenia, Anxiety, Hypertension, presenting after known dog attacked him with multiple bite wounds to his body. It was noted multiple lacerations to left forearm ,right medial thigh, left medial thigh, left lateral calf, right p opliteal area ,right medial calf. Multiple smaller abrasions throughout both upper and lower extremities and back. He received tetanus shot in the ED. Labs/imaging: Wbc 13.4, Hgb 11, Plt 156, Na 136, K 4.2, Creatinine 4.05, Glucose 105, CXR was obtained that revealed: Bilateral opacities concerning for pneumonia. Continued follow-up recommended. Femur XR: soft tissue injury, Sputum/Blood culture pending. Pt admitted for multiple lacerations. Will consult general surgery for further evaluation. Acute renal failure noted on labs, order IVF NS@125ml/h. CXR possible pneumonia, pt is currently on IV antibiotics: Ancef and Levaquin, for coverage of bite wounds and pneumonia. Monitor renal function, restart psychiatric medications. Continue to closely monitor and follow up labs. Past Medical History Past Medical History: Anxiety, Arthritis and Hypertension Past Surgical History Surgical History: No History Family History Family Medical History: Cancer and Hypertension Social History Does patient currently use any type of tobacco product: Yes Have you used tobacco products in the last 12 months: Yes Type of Tobacco Use: Cigarettes How many years tobacco product used: 40 Does any household member use tobacco: Yes Alcohol Use: None Drug Use: Prescription Drugs Medications Home Medications: Home Medications Medication Instructions Recorded Confirmed Type alprazolam 0.5 mg tablet 0.5 mg PO QPM PRN insomnia 12/24/22 12/24/22 History buspirone 15 mg tablet 15 mg PO TID 12/24/22 12/24/22 History cyclobenzaprine 10 mg tablet 10 mg PO BID 12/24/22 12/24/22 History desvenlafaxine 50 mg 50 mg PO QDAY 12/24/22 12/24/22 History tablet,extended release 24 hr folic acid 1 mg tablet 1 mg PO QDAY 12/24/22 12/24/22 History methylprednisolone 4 mg tablets in 4 mg PO PER PKG DIR 12/24/22 12/24/22 History a dose pack mirtazapine 30 mg tablet 30 mg PO QHS 12/24/22 12/24/22 History naproxen 500 mg tablet 500 mg PO BID 12/24/22 12/24/22 History olanzapine 5 mg tablet 5 mg PO BID 12/24/22 12/24/22 History pregabalin 150 mg capsule 150 mg PO TID PRN pain 12/24/22 12/24/22 History quetiapine 100 mg tablet 100 mg PO QHS 12/24/22 12/24/22 History Labs 12/25/22 04:15 12/25/22 04:15 Labs: 12/24/22 09:35 Sputum - Endotracheal Wash - Final Laboratory WBC 9.3 X10^3/uL (3.6-10.0) 12/25/22 04:15 RBC 3.25 X10^6/uL (4.7-6.0) L 12/25/22 04:15 Hgb 9.9 g/dL (13.5-18.0) L 12/25/22 04:15 Hct 28.2 % (42.0-54.0) L 12/25/22 04:15 MCV 86.8 fL (80.0-100.0) 12/25/22 04:15 MCH 30.4 pg (27.0-34.0) 12/25/22 04:15 MCHC 35.0 g/dL (33.0-35.0) 12/25/22 04:15 RDW 13.6 % (11.6-16.5) 12/25/22 04:15 Plt Count 117 X10^3/uL (150.0-450.0) L 12/25/22 04:15 MPV 10.1 fL (7.4-11.0) 12/25/22 04:15 Neut % (Auto) 80.9 % (42.0-75.0) H 12/25/22 04:15 Lymph % (Auto) 10.8 % (21.0-51.0) L 12/25/22 04:15 [place] % (Auto) 8.0 % (0.0-13.0) 12/25/22 04:15 Eos % (Auto) 0.0 % (0.9-2.9) L 12/25/22 04:15 Baso % (Auto) 0.3 % (0.2-1.0) 12/25/22 04:15 Neut # (Auto) 7.5 x10^3/uL (2.2-4.8) H 12/25/22 04:15 Lymph # (Auto) 1.0 X10^3/uL (1.3-2.9) L 12/25/22 04:15 [place] # (Auto) 0.7 x10^3/uL (0.3-0.8) 12/25/22 04:15 Eos # (Auto) 0.0 x10^3/uL (0.0-0.2) 12/25/22 04:15 Baso # (Auto) 0.0 X10^3/uL (0.0-0.1) 12/25/22 04:15 Absolute Nucleated RBC 0.0 /100WBC 12/25/22 04:15 PT 15.6 SECONDS (11.8-14.3) 12/24/22 06:31 INR Target Range - 12/24/22 06:31 INR 1.26 (0.8-1.3) 12/24/22 06:31 APTT 31.1 SECONDS (22.9-36.5) 12/24/22 06:31 PTT Comment - 12/24/22 06:31 Fibrinogen 519 mg/dL (239-489) H 12/24/22 06:31 Sodium 137 mmol/L (136-145) 12/25/22 04:15 Corrected Sodium 137 mmol/L (136-145) 12/25/22 04:15 Potassium 4.0 mmol/L (3.5-5.1) 12/25/22 04:15 Chloride 104 mmol/L (98-107) 12/25/22 04:15 Carbon Dioxide 28.3 mmol/L (21-32) 12/25/22 04:15 BUN 15 mg/dL (7-18) 12/25/22 04:15 Creatinine 0.93 mg/dL (0.70-1.30) 12/25/22 04:15 Est GFR (MDRD) Af Amer > 60 (>60) 12/25/22 04:15 Est GFR (MDRD) Non-Af > 60 (>60) 12/25/22 04:15 Glucose 113 mg/dL (65-99) H 12/25/22 04:15 Lactic Acid 1.6 mmol/L (0.4-2.0) 12/24/22 19:38 Calcium 7.9 mg/dL (8.5-10.1) L 12/25/22 04:15 Corrected Calcium 9.2 mg/dL (8.5-10.1) 12/25/22 04:15 Phosphorus 7.2 mg/dL (2.6-4.7) H 12/24/22 06:31 Magnesium 2.8 mg/dL (2.0-2.9) 12/24/22 06:31 Total Bilirubin 0.70 mg/dL (0.2-1.0) 12/25/22 04:15 AST 215 Units/L (15-37) H 12/25/22 04:15 ALT 66 Units/L (12-78) 12/25/22 04:15 Alkaline Phosphatase 55 Units/L (46-116) 12/25/22 04:15 Creatine Kinase 6844 Units/L (39-308) H 12/24/22 19:38 Total Protein 5.4 g/dL (6.4-8.2) L 12/25/22 04:15 Albumin 2.4 g/dL (3.4-5.0) L 12/25/22 04:15 Globulin 3.0 g/dL (2.5-4.5) 12/25/22 04:15 Albumin/Globulin Ratio 0.8 Ratio (1.1-2.1) L 12/25/22 04:15 Salicylates 4.4 mg/dL (2.8-20) 12/24/22 06:31 Acetaminophen 0.4 ug/mL (10-30) L 12/24/22 06:31 Ethyl Alcohol mg/dL < 3 mg/dL (0-19.9) 12/24/22 06:31 Blood Type B POSITIVE 12/24/22 07:54 Antibody Screen Negative 12/24/22 07:54 Review of Systems Constitutional: See HPI Eyes: No Symptoms Reported ENT: No Symptoms Reported Respiratory: No Symptoms Reported Cardiovascular: No Symptoms Reported Gastrointestinal: No Symptoms Reported Genitourinary: No Symptoms Reported Musculoskeletal: No Symptoms Reported Skin: See HPI Neurological: No Symptoms Reported Physical Exam Vital Signs: Vital Signs Temperature 100.0 F Temperature 100.0 F Temperature 99.7 F Temperature 99.7 F Pulse Rate [Left] 112 Pulse Rate 97 Pulse Rate 102 Pulse Rate 111 Pulse Rate 104 Pulse Rate 101 Pulse Rate 102 Pulse Rate 104 Pulse Rate 103 Pulse Rate 102 Pulse Rate 108 Pulse Rate 118 Pulse Rate 103 Pulse Rate 104 Pulse Rate 104 Pulse Rate 104 Pulse Rate 105 Pulse Rate 104 Pulse Rate 107 Pulse Rate 108 Pulse Rate 109 Pulse Rate 110 Pulse Rate 112 Pulse Rate 111 Pulse Rate 112 Pulse Rate 118 Pulse Rate 141 Pulse Rate 119 Pulse Rate 114 Pulse Rate 121 Pulse Rate 120 Pulse Rate 118 Pulse Rate 134 Pulse Rate 117 Pulse Rate 117 Pulse Rate 115 Pulse Rate 116 Pulse Rate 115 Pulse Rate 115 Pulse Rate 132 Pulse Rate 127 Pulse Rate 112 Pulse Rate 122 Pulse Rate 115 Respiratory Rate 23 Respiratory Rate 18 Respiratory Rate 20 Respiratory Rate 19 Respiratory Rate 15 Respiratory Rate 15 Respiratory Rate 15 Respiratory Rate 16 Respiratory Rate 17 Respiratory Rate 19 Respiratory Rate 20 Respiratory Rate 18 Respiratory Rate 14 Respiratory Rate 14 Respiratory Rate 18 Respiratory Rate 14 Respiratory Rate 14 Respiratory Rate 14 Respiratory Rate 14 Respiratory Rate 14 Respiratory Rate 14 Respiratory Rate 15 Respiratory Rate 12 Respiratory Rate 16 Respiratory Rate 24 Respiratory Rate 18 Respiratory Rate 12 Respiratory Rate 22 Respiratory Rate 19 Respiratory Rate 19 Respiratory Rate 18 Respiratory Rate 21 Respiratory Rate 26 Respiratory Rate 24 Respiratory Rate 20 Respiratory Rate 24 Respiratory Rate 20 Respiratory Rate 22 Respiratory Rate 23 Respiratory Rate 23 Respiratory Rate 17 Respiratory Rate 22 Respiratory Rate 17 Respiratory Rate 25 Respiratory Rate 20 Blood Pressure [Left Arm] 122/79 Blood Pressure 107/69 Blood Pressure 101/57 Blood Pressure 101/57 Blood Pressure 138/75 Blood Pressure 145/67 Blood Pressure 138/75 Blood Pressure 114/62 Blood Pressure 111/58 Blood Pressure 111/58 Blood Pressure 104/57 Blood Pressure 106/54 Blood Pressure 106/54 Blood Pressure 133/68 Blood Pressure 133/68 Blood Pressure 114/58 Blood Pressure 114/58 Blood Pressure 97/59 Blood Pressure 97/59 Blood Pressure 113/66 Blood Pressure 113/66 Blood Pressure 122/79 O2 Sat by Pulse Oximetry 95 O2 Sat by Pulse Oximetry 100 O2 Sat by Pulse Oximetry 100 O2 Sat by Pulse Oximetry 99 O2 Sat by Pulse Oximetry 100 O2 Sat by Pulse Oximetry 100 O2 Sat by Pulse Oximetry 100 O2 Sat by Pulse Oximetry 99 O2 Sat by Pulse Oximetry 99 O2 Sat by Pulse Oximetry 97 O2 Sat by Pulse Oximetry 100 O2 Sat by Pulse Oximetry 99 O2 Sat by Pulse Oximetry 100 O2 Sat by Pulse Oximetry 100 O2 Sat by Pulse Oximetry 100 O2 Sat by Pulse Oximetry 100 O2 Sat by Pulse Oximetry 100 O2 Sat by Pulse Oximetry 100 O2 Sat by Pulse Oximetry 100 O2 Sat by Pulse Oximetry 100 O2 Sat by Pulse Oximetry 100 O2 Sat by Pulse Oximetry 99 O2 Sat by Pulse Oximetry 100 O2 Sat by Pulse Oximetry 98 O2 Sat by Pulse Oximetry 97 O2 Sat by Pulse Oximetry 86 O2 Sat by Pulse Oximetry 100 O2 Sat by Pulse Oximetry 98 O2 Sat by Pulse Oximetry 94 O2 Sat by Pulse Oximetry 98 O2 Sat by Pulse Oximetry 99 O2 Sat by Pulse Oximetry 96 O2 Sat by Pulse Oximetry 100 O2 Sat by Pulse Oximetry 99 O2 Sat by Pulse Oximetry 95 O2 Sat by Pulse Oximetry 96 O2 Sat by Pulse Oximetry 94 O2 Sat by Pulse Oximetry 96 O2 Sat by Pulse Oximetry 95 O2 Sat by Pulse Oximetry 96 O2 Sat by Pulse Oximetry 97 Oriented: Normal, Time, Person and Place Eyes: Normal Ear: Normal Nose: Normal Throat: Normal Respiratory: Clear Throughout Cardiovascular: Normal : Normal Auscultation: Bowel Sounds: Normal Palpation: Normal Tenderness: Normal Skin: Wound (multiple lacerations upper and lower extremities b/l) Musculoskeletal: Normal Psychiatric: Normal Mood Description: Calm and Appropriate Affect: Normal Speech Pattern: Clear and Appropriate Assessment/Plan (1) Dog bite of multiple sites: Status: Acute Plan: IV antibiotics, Consult general surgery (2) Acute renal failure: Status: Acute Plan: IVF NS@125ml/h. (3) Pneumonia: Qualifiers: Pneumonia type: due to unspecified organism Status: Acute Plan: IV antibiotics. Review H&P Reviewed: Yes Patient was examined?: Yes
[2022-12-25 08:10] VITALS: TEMP 98.2
[2022-12-25] MEDS: PULMICORT NEB TX 0.5 MG NEB SCH (08:34)
[2022-12-25] MEDS: NICOTINE PATCH TD SCH (08:38)
[2022-12-25] MEDS: FOLIC ACID TAB 1 MG PO SCH (08:38)
[2022-12-25] MEDS: ZyPREXA TAB 5 MG PO SCH (08:38)
[2022-12-25] MEDS: FLEXERIL TAB 10 MG PO SCH (08:38)
[2022-12-25] MEDS: ANCEF VIAL 1 GRAM 1 G in NS 100 ML IV 100 ML IV SCH (08:52)
[2022-12-25] MEDS ORDERED: LEVAQUIN PREMIX IV 500 MG 500 MG/100 ML BAG IV SCH (10:00)
[2022-12-25] MEDS ORDERED: ANCEF VIAL 1 GRAM 1 G in NS 100 ML IV 100 ML IV SCH (14:00)
[2022-12-25 14:06] VITALS: BP 120/70; PULSE 112; RESP 18; O2SAT 94
--- NOTE | 2022-12-25 20:48 | DR.OPNOTE ---
OP NOTE Pre-Op Diagnosis: Multiple lacerations of the extremities due to a dog attack Post-Op Diagnosis: same Procedure Date Date Of Procedure: 12/24/22 Procedure: PROCEDURE: closure of multiple lacerations to the extremities NARRAATIVE : This patient was attacked by a dog. He received multiple abrasions and scratches to his back, buttocks, both arms and both legs. He received multiple lacerations which will be enumerated below. He had received tetanus toxoid and the dog is being observed for rabies. There is no evidence of neurological injury and no significant bleeding . This patient was taken to the operative suite and placed in the supine position. He was given intravenous sedation which was supervised by myself. All the wounds were cleansed with Betadine. The wounds for closure were : - left medial thigh wound 11x 1.5x 1.5 cm -right medial thigh wound 10x1.5x1.5 cm -left elbow wound 3x1x0.5 cm -left lateral calf wound 2x1x 1 cm -right popliteal space wound 4x1x1 cm -right medial knee wound 2x1x1 cm -left ankle wound 2x0.5x0.5 cm Both thigh wounds were closed loosely with skin cindy .All other incisions clothes loosely with interrupted 4-0 nylon sutures .all wounds dressed with Neosporin appointment .The patient was taken back to the ICU in good condition. Type of Anesthesia: Local (1% Xylocaine ) Anesthesia Comment: plus MAC Findings: see procedure note Type of Fluids Used:: Lactated Ringers EBL: minimal Complications:: none Needle/Sponge Count:: correct Disposition/Condition: Pt. tolerated procedure without difficulty. Taken to the CCU in stable condition.
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
[2022-12-27 06:11] LABS: MYOGLOBIN SERUM 19972 ng/mL (<=72)
== END 2022-12-25 13:20 | disposition home or self-care (01) | DRG 579 ==
LOC: ER 06:12 → ICU 08:19
PROVIDERS: ADMIT Family Medicine; ATTEND Family Medicine
PROC: WOUNDCL (2022-12-24 17:50)

== ENCOUNTER 2024-03-08 15:00 | Observation (INO) ==
[2024-03-08] MEDS ORDERED: NS 1,000 ML IV 1,000 ML ONE (15:36)
--- NOTE | 2024-03-08 15:50 | DR.DING ---
HPI Time Seen Time Seen by Provider: 03/08/24 15:49 PCP Primary Care Physician: Cris Fry Complaint Chief Complaint Doctors Comments: 53 year old male brought in by EMS with possible overdose. Chief Complaint:: Pt drowsy, slurred speech, oriented to location and self. EMS called to scene d/t possible overdose, pt admits he took zanaflex and percocets. EMS administered 0.5mg of narcan on scene. Pt arousable to name called; on NRB mask on arrival; O2 sat 100% on room air while pt awake and talking. Pt denies he took any prozac (which was reported to EMS). COVID-19 Coronavirus risk:travel/contact w/high risk person: No Has patient experienced Coronavirus symptoms: Yes Coronavirus symptoms experienced: Shortness of Breath Reviewed Nurses Notes Review: Yes Source History Provided: Patient and EMS Mode of Arrival Mode of Arrival: EMS Timing Onset of Chief Complaint: 03/08/24 Associated signs and symptoms Associated signs and symptoms: denies Depression, Hopeless, Anxiety, Anger or Hallucinations PMH PMH Past Medical History: Yes Past Medical History: Anxiety, Arthritis, Hypertension and Schizophrenia Past Surgical History: Yes Surgical History: Other Past Surgical History Comment: surgical repair of animal bites/lacerations Family History History of Family Medical Conditions: Yes Family Medical History: Cancer and Hypertension Social History Does patient currently use any type of tobacco product: Yes Have you used tobacco products in the last 12 months: Yes Type of Tobacco Use: Cigarettes Does any household member use tobacco: Yes Alcohol Use: Rarely Do you use any recreational Drugs:: Yes (meth) Lives With: Spouse Lives Where: Home Travel Risk Coronavirus risk:travel/contact w/high risk person: No Has patient experienced Coronavirus symptoms: Yes Coronavirus symptoms experienced: Shortness of Breath Infectious screening In the last 2 months have you had wt loss of >10#?: NO Have you had fever, night sweats or hemotysis?: No Have you traveled outside the country in the last 6 months?: No Isolation: Standard ROS Review of Systems Constitutional: No Symptoms Reported Eyes: No Symptoms Reported ENTM: No Symptoms Reported Respiratoy: No Symptoms Reported and See HPI; negative Short of Breath Cardiovascular: No Symptoms Reported Gastrointestinal/Abdominal: No Symptoms Reported Genitourinary: No Symptoms Reported Neurological: See HPI and Other (Per EMS patient took overdose of medications. Pt was given Narcan by EMS) Musculoskeletal: No Symptoms Reported Integumentary: No Symptoms Reported Hematologic/Lymphatic: No Symptoms Reported Endocrine: No Symptoms Reported Psychiatric: No Symptoms Reported All Other Systems: Reviewed and Negative PE Vital signs Vitals: Vital Signs Temperature 97.9 F Pulse Rate 75 Pulse Rate 80 Pulse Rate 68 Pulse Rate 69 Pulse Rate 69 Pulse Rate 67 Pulse Rate 70 Pulse Rate 68 Pulse Rate 71 Pulse Rate 72 Pulse Rate 74 Pulse Rate 73 Pulse Rate 74 Pulse Rate 73 Pulse Rate 71 Pulse Rate 76 Pulse Rate 70 Pulse Rate 71 Pulse Rate 71 Pulse Rate 71 Pulse Rate 71 Pulse Rate 70 Pulse Rate 70 Pulse Rate 73 Pulse Rate 74 Pulse Rate 75 Respiratory Rate 13 Respiratory Rate 22 Respiratory Rate 27 Respiratory Rate 26 Respiratory Rate 12 Respiratory Rate 15 Respiratory Rate 17 Respiratory Rate 24 Respiratory Rate 16 Respiratory Rate 29 Respiratory Rate 18 Respiratory Rate 22 Respiratory Rate 14 Respiratory Rate 13 Respiratory Rate 13 Respiratory Rate 26 Respiratory Rate 11 Respiratory Rate 12 Respiratory Rate 12 Respiratory Rate 11 Respiratory Rate 15 Respiratory Rate 11 Respiratory Rate 11 Respiratory Rate 17 Respiratory Rate 27 Respiratory Rate 15 Blood Pressure 94/56 Blood Pressure 106/57 Blood Pressure 106/57 Blood Pressure 105/55 Blood Pressure 105/55 Blood Pressure 107/54 Blood Pressure 135/93 Blood Pressure 114/58 Blood Pressure 120/59 Blood Pressure 118/58 Blood Pressure 104/59 Blood Pressure 93/55 Blood Pressure 111/59 Blood Pressure 140/68 O2 Sat by Pulse Oximetry 97 O2 Sat by Pulse Oximetry 98 O2 Sat by Pulse Oximetry 98 O2 Sat by Pulse Oximetry 100 O2 Sat by Pulse Oximetry 100 O2 Sat by Pulse Oximetry 100 O2 Sat by Pulse Oximetry 100 O2 Sat by Pulse Oximetry 100 O2 Sat by Pulse Oximetry 100 O2 Sat by Pulse Oximetry 100 O2 Sat by Pulse Oximetry 100 O2 Sat by Pulse Oximetry 100 General Limitations: No Limitations; negative Altered Mental Status General Appearance: In No Apparent Distress and Lethargic Head Head Exam: Normal Inspection, Atraumatic and Normocephalic Eyes Eye exam: Normal Appearance, PERRL and EOMI ENT ENT Exam: Normal Exam Neck Neck Exam: Normal Inspection Chest Chest Inspection: Normal Inspection Respiratory Respiratory Exam: Normal Lung Sounds Bilat Cardiovascular Cardiovascular Exam: Regular Rate and Normal Rhythm Abdominal Exam Abdominal Exam: Normal Inspection, Normal Bowel Sounds and Soft Extremities Extremities Exam: Normal Inspection Back Back Exam: Normal Inspection Neurologic Neurological Exam: Alert and Oriented X3 Psychiatric Psychiatric Exam: Normal Affect and Normal Mood Skin Skin Exam: Warm, Dry, Intact and Normal Color MDM Differential Diagnosis Differential Diagnosis: Accidental drug overdose, Intentional drup overdose, Suicidal attempt and Suicidal gesture COURSE Treatment Treatment: See treatment while in ED Reevaluation 1st: Improved Consultation Call Returned: 19:26 Consultation Comments: Dr. Jane agrees to admit patient. Education/Counseling Education/Counseling: Patient Educated On: Treatment and Diagnosis ROR Labs Reviewed Laboratory Results Reviewed?: Yes 03/09/24 05:55 03/09/24 05:55 Laboratory: WBC 16.0 X10^3/uL (3.6-10.0) H 03/08/24 16:00 RBC 4.50 X10^6/uL (4.7-6.0) L 03/08/24 16:00 Hgb 13.0 g/dL (13.5-18.0) L 03/08/24 16:00 Hct 39.7 % (42.0-54.0) L 03/08/24 16:00 MCV 88.3 fL (80.0-100.0) 03/08/24 16:00 MCH 28.9 pg (27.0-34.0) 03/08/24 16:00 MCHC 32.8 g/dL (33.0-35.0) L 03/08/24 16:00 RDW 14.8 % (11.6-16.5) 03/08/24 16:00 Plt Count 145 X10^3/uL (150.0-450.0) L 03/08/24 16:00 MPV 8.9 fL (7.4-11.0) 03/08/24 16:00 Neut % (Auto) 78.0 % (42.0-75.0) H 03/08/24 16:00 Lymph % (Auto) 12.5 % (21.0-51.0) L 03/08/24 16:00 [place] % (Auto) 7.1 % (0.0-13.0) 03/08/24 16:00 Eos % (Auto) 1.6 % (0.9-2.9) 03/08/24 16:00 Baso % (Auto) 0.8 % (0.2-1.0) 03/08/24 16:00 Neut # (Auto) 12.5 x10^3/uL (2.2-4.8) H 03/08/24 16:00 Lymph # (Auto) 2.0 X10^3/uL (1.3-2.9) 03/08/24 16:00 [place] # (Auto) 1.1 x10^3/uL (0.3-0.8) H 03/08/24 16:00 Eos # (Auto) 0.3 x10^3/uL (0.0-0.2) H 03/08/24 16:00 Baso # (Auto) 0.1 X10^3/uL (0.0-0.1) 03/08/24 16:00 Absolute Nucleated RBC 0.1 /100WBC 03/08/24 16:00 Sodium 135 mmol/L (136-145) L 03/08/24 16:00 Corrected Sodium TNP 03/08/24 16:00 Potassium 3.8 mmol/L (3.5-5.1) 03/08/24 16:00 Chloride 98 mmol/L (98-107) 03/08/24 16:00 Carbon Dioxide 29.9 mmol/L (21-32) 03/08/24 16:00 BUN 40 mg/dL (7-18) H 03/08/24 16:00 Creatinine 2.55 mg/dL (0.70-1.30) H 03/08/24 16:00 Est GFR (MDRD) Af Amer 34 (>60) L 03/08/24 16:00 Est GFR (MDRD) Non-Af 28 (>60) L 03/08/24 16:00 Glucose 74 mg/dL (65-99) 03/08/24 16:00 Calcium 8.3 mg/dL (8.5-10.1) L 03/08/24 16:00 Corrected Calcium TNP 03/08/24 16:00 Total Bilirubin 0.80 mg/dL (0.2-1.0) 03/08/24 16:00 AST 562 Units/L (15-37) H 03/08/24 16:00 ALT 167 Units/L (12-78) H 03/08/24 16:00 Alkaline Phosphatase 98 Units/L (46-116) 03/08/24 16:00 Total Protein 6.8 g/dL (6.4-8.2) 03/08/24 16:00 Albumin 3.7 g/dL (3.4-5.0) 03/08/24 16:00 Globulin 3.1 g/dL (2.5-4.5) 03/08/24 16:00 Albumin/Globulin Ratio 1.2 Ratio (1.1-2.1) 03/08/24 16:00 Specimen Type Clean catch urine 03/08/24: Urine Color Yellow (YELLOW) 03/08/24: Urine Appearance Hazy (CLEAR) 03/08/24: Urine pH 5.0 (5.0 - 8.0) 03/08/24: Ur Specific [place] 1.020 (1.000-1.030) 03/08/24: Urine Protein 1+ (NEGATIVE) 03/08/24: Urine Glucose (UA) Negative (NEGATIVE) 03/08/24: Urine Ketones 2+ (NEGATIVE) 03/08/24: Urine Blood 4+ (NEGATIVE) 03/08/24: Urine Nitrite Negative (NEGATIVE) 03/08/24: Urine Bilirubin Negative (NEGATIVE) 03/08/24: Urine Urobilinogen Normal (NORMAL) 03/08/24: Ur Leukocyte Esterase Negative (NEGATIVE) 03/08/24: Urine RBC 3-5 /HPF (0-3) A 03/08/24: Urine WBC 3-5 /HPF (0-5) 03/08/24: Ur Squamous Epith Cells Few /HPF (NEGATIVE) 03/08/24: Amorphous Sediment 1+ /HPF (NEGATIVE) 03/08/24: Urine Bacteria Trace /HPF (NEGATIVE) 03/08/24: Hyaline Casts Numerous /LPF (NEGATIVE) 03/08/24: Urine Mucus Many /HPF (NEGATIVE) 03/08/24: Ur Culture Indicated? No/not indicated 03/08/24: Urine Opiates Screen Negative (NEG=<300) 03/08/24: Urine Methadone Screen Negative (NEG=<300) 03/08/24: Ur Barbiturates Screen Negative (NEG=<200) 03/08/24: Ur Phencyclidine Scrn Negative (NEG=<25) 03/08/24 19:31 Ur Amphetamines Screen Positive (NEG=<1000) 03/08/24 19:31 U Benzodiazepines Scrn Negative (NEG=<200) 03/08/24 19:31 Urine Cocaine Screen Negative (NEG=<300) 03/08/24 19:31 U Marijuana (THC) Screen Negative (NEG=<50) 03/08/24 19:31 XRAY XRAY Interpreted by: Radiologist X-ray Results: Name: JOSEPH HARRIS : 1970 Sex: M Location: ER Order Number(s): [id number] Procedure(s):BRAIN CT W/O CON Ordering Physician: RUSLAN CLARK Primary Care: NFD,None Service Date: 03/08/24 Service Time: 1550 EXAM: BRAIN W/O CON HISTORY: AMS, OD; COMPARISON: 12/30/2023 TECHNIQUE: Multip le axial images of the head were performed from the skullbase to the vertex using standard departmental protocol. Sagittal and coronal reformatted images were performed. Dose reduction techniques including Automated Exposure Control (AEC) and adjustment of mA and kV were utilized. FINDINGS: The sulci, cisterns and ventricles are age appropriate. Mild cortical atrophy compatible with patient's age. There is no evidence of hemorrhage, mass, mass effect or midline shift. There is a small area of decreased attenuation high in the mid right parietal lobe near the midline. There is also decreased attenuation within the mid and left rach. On sagittal reconstructions these areas of low attenuation appear to be artifactual in origin. There are no abnormal intra-axial or extra-axial fluid collections. The visualized paranasal sinuses and mastoid air cells are predominantly clear. IMPRESSION: Limited noncontrast CT scan of the brain secondary to artifacts as described. Mild cortical atrophy. No acute intracranial pathology. THIS IS AN ELECTRONICALLY VERIFIED FINAL REPORT 03/08/2024 4:27 PM - Electronically signed by Rupesh Villafana MD Report Electronically signed: 03/08/24 [id number] CC: Ruslan Clark EKG [place]: Normal Rhythm: NSR Opioid Opioid Risk Tool Age ([place]ernando box if 16-45): No History of Preadolescent Sexual Abuse: No Total: 0 Total Score Risk Category: Low Risk Copyright: Yadiel QUEEN predicting aberrant behaviors Discharge Plan Diagnosis Discharge Problem: Acute dehydration, Altered mental status, Substance abuse Discharge Plan Patient Disposition: 09 ADMITTED INPATIENT Condition: Stable
[2024-03-08] MEDS: NS 1,000 ML IV 1,000 ML IV ONE (16:02)
[2024-03-08] MEDS: NARCAN INJ IVP ONE ×2 (16:02→19:07)
[2024-03-08 16:17] LABS: BASOPHILS # (AUTO) 0.1 X10^3/uL (0.0-0.1); BASOPHILS % (AUTO) 0.8 % (0.2-1.0); EOSINOPHILS # (AUTO) 0.3 x10^3/uL (0.0-0.2); EOSINOPHILS % (AUTO) 1.6 % (0.9-2.9); HEMATOCRIT 39.7 % (42.0-54.0); LYMPHOCYTES % (AUTO) 12.5 % (21.0-51.0); MEAN CORPUSCULAR HEMOGLOBIN 28.9 pg (27.0-34.0); MEAN CORPUSCULAR HGB CONC 32.8 g/dL (33.0-35.0); MEAN CORPUSCULAR VOLUME 88.3 fL (80.0-100.0); MEAN PLATELET VOLUME 8.9 fL (7.4-11.0); MONOCYTES # (AUTO) 1.1 x10^3/uL (0.3-0.8); MONOCYTES % (AUTO) 7.1 % (0.0-13.0); NEUTROPHILS # (AUTO) 12.5 x10^3/uL (2.2-4.8); PLATELET COUNT 145 X10^3/uL (150.0-450.0); RED CELL DISTRIBUTION WIDTH 14.8 % (11.6-16.5)
--- NOTE | 2024-03-08 16:30 | CT ---
EXAM:BRAIN W/O CONHISTORY:AMS, OD;COMPARISON:12/30/2023TECHNIQUE:Multip le axial images of the head were performed from the skullbase to the vertex using standard departmental protocol. Sagittal and coronal reformatted images were performed. Dose reduction techniques including Automated Exposure Control (AEC) and adjustment of mA and kV were utilized.FINDINGS:The sulci, cisterns and ventricles are age appropriate. Mild cortical atrophy compatible with patient's age. There is no evidence of hemorrhage, mass, mass effect or midline shift. There is a small area of decreased attenuation high in the mid right parietal lobe near the midline. There is also decreased attenuation within the mid and left rach. On sagittal reconstructions these areas of low attenuation appear to be artifactual in origin. There are no abnormal intra-axial or extra-axial fluid collections. The visualized paranasal sinuses and mastoid air cells are predominantly clear.IMPRESSION:Limited noncontrast CT scan of the brain secondary to artifacts as described.Mild cortical atrophy.No acute intracranial pathology.THIS IS AN ELECTRONICALLY VERIFIED FINAL [id number] 4:27 PM - Electronically signed by Rupesh Villafana MD
[2024-03-08 16:31] LABS: ALANINE AMINOTRANSFERASE 167 Units/L (12-78); ALBUMIN 3.7 g/dL (3.4-5.0); ALKALINE PHOSPHATASE 98 Units/L (46-116); ASPARTATE AMINO TRANSFERASE 562 Units/L (15-37); BLOOD UREA NITROGEN 40 mg/dL (7-18); CALCIUM 8.3 mg/dL (8.5-10.1); CARBON DIOXIDE 29.9 mmol/L (21-32); CHLORIDE 98 mmol/L (98-107); CREATININE 2.55 mg/dL (0.70-1.30); GLUCOSE 74 mg/dL (65-99); POTASSIUM 3.8 mmol/L (3.5-5.1); SODIUM 135 mmol/L (136-145); TOTAL PROTEIN 6.8 g/dL (6.4-8.2); eGFR NON BLACK RACES 28 (>60)
[2024-03-08] MEDS: NS 1,000 ML IV 1,000 ML IV SCH (17:52)
[2024-03-08] MEDS ORDERED: NARCAN INJ ONE (19:06)
[2024-03-08 19:59] LABS: BILIRUBIN,URINE NEGATIVE (NEGATIVE); BLOOD/HEMOGLOBIN,URINE 4+ (NEGATIVE); GLUCOSE, URINE NEGATIVE (NEGATIVE); KETONES,URINE 2+ (NEGATIVE); LEUKOCYTE ESTERASE ,URINE NEGATIVE (NEGATIVE); NITRITES,URINE NEGATIVE (NEGATIVE); PROTEIN,URINE 1+ (NEGATIVE); UROBILINOGEN,URINE NORMAL (NORMAL)
[2024-03-08 20:06] LABS: APPEARANCE,URINE HAZY (CLEAR); COLOR,URINE YELLOW (YELLOW)
[2024-03-08 20:07] LABS: BACTERIA,URINE TRACE /HPF (NEGATIVE); HYALINE CASTS, URINE NUMEROUS /LPF (NEGATIVE); SQUAMOUS EPITHELIAL CELL,UR FEW /HPF (NEGATIVE)
[2024-03-08 23:08] VITALS: BMI 21.2
[2024-03-09 06:43] LABS: BASOPHILS # (AUTO) 0.1 X10^3/uL (0.0-0.1); BASOPHILS % (AUTO) 0.6 % (0.2-1.0); EOSINOPHILS # (AUTO) 0.5 x10^3/uL (0.0-0.2); EOSINOPHILS % (AUTO) 5.2 % (0.9-2.9); HEMATOCRIT 35.4 % (42.0-54.0); HEMOGLOBIN 11.9 g/dL (13.5-18.0); LYMPHOCYTES # (AUTO) 2.5 X10^3/uL (1.3-2.9); LYMPHOCYTES % (AUTO) 26.2 % (21.0-51.0); MEAN CORPUSCULAR HEMOGLOBIN 29.7 pg (27.0-34.0); MEAN CORPUSCULAR HGB CONC 33.6 g/dL (33.0-35.0); MEAN CORPUSCULAR VOLUME 88.4 fL (80.0-100.0); MEAN PLATELET VOLUME 9.2 fL (7.4-11.0); MONOCYTES # (AUTO) 0.7 x10^3/uL (0.3-0.8); MONOCYTES % (AUTO) 7.6 % (0.0-13.0); NEUTROPHILS # (AUTO) 5.7 x10^3/uL (2.2-4.8); NEUTROPHILS % (AUTO) 60.4 % (42.0-75.0); PLATELET COUNT 128 X10^3/uL (150.0-450.0); RED BLOOD COUNT 4.01 X10^6/uL (4.7-6.0); RED CELL DISTRIBUTION WIDTH 15.1 % (11.6-16.5); WHITE BLOOD COUNT 9.5 X10^3/uL (3.6-10.0)
[2024-03-09 07:04] LABS: ALANINE AMINOTRANSFERASE 130 Units/L (12-78); ALKALINE PHOSPHATASE 82 Units/L (46-116); ASPARTATE AMINO TRANSFERASE 323 Units/L (15-37); BLOOD UREA NITROGEN 26 mg/dL (7-18); CALCIUM 8.2 mg/dL (8.5-10.1); CARBON DIOXIDE 26.4 mmol/L (21-32); CHLORIDE 105 mmol/L (98-107); CREATININE 0.91 mg/dL (0.70-1.30); GLUCOSE 67 mg/dL (65-99); POTASSIUM 3.5 mmol/L (3.5-5.1); SODIUM 138 mmol/L (136-145); eGFR NON BLACK RACES > 60 (>60)
--- NOTE | 2024-03-09 07:47 | RAD ---
EXAM:ACUTE ABDOMEN SERI ESHISTORY:r/o costipation per md orders;COMPARISON:NoneFINDINGS:The cardiomediastinal silhouette is normal in size. No acute airspace disease. No pneumothorax or effusion.No acute osseous abnormality in the thorax.Evaluation of the abdomen demonstrates a nonobstructive bowel gas pattern. no evidence of pneumoperitoneum. No pathologic soft tissue calcification. No acute osseous abnormality in the abdomen.IMPRESSION:1. No acute cardiopulmonary process.2. No acute abdominal process. No evidence of constipation.THIS IS AN ELECTRONICALLY VERIFIED FINAL [id number]/2024 7:43 AM - Electronically signed by Estevan Clements MD
[2024-03-09] MEDS ORDERED: K-DUR TAB 20 MEQ PO SCH (08:00)
[2024-03-09] MEDS ORDERED: CONSULT PHARMACY - POTASSIUM & MAGNESIUM XX SCH (08:00)
[2024-03-09 08:12] VITALS: BP 103/56; PULSE 84; RESP 20; TEMP 98.5; O2SAT 97
[2024-03-09] MEDS ORDERED: LOVENOX INJ 40 MG SYR SC SCH (09:00)
== END 2024-03-09 08:25 | disposition left against medical advice (07) ==
LOC: ER 15:00 → MED/SURG 15:00
PROVIDERS: ADMIT Obstetrics & Gynecology Obstetrics; ATTEND Obstetrics & Gynecology Obstetrics